=== PATIENT | male | born 1995 | race Caucasian/White ===

== ENCOUNTER 2018-01-28 10:55 | Inpatient (IN) | payer MEDICAID, OTHER ==
[2018-01-28 11:25] VITALS: BMI 20.9
--- NOTE | 2018-01-28 11:54 | ED PDOC ---
Arrival/HPI - General Historian: Patient - History of Present Illness Time/Duration: 4-6 hours Symptom Course: Unchanged Activities at Onset: Rest Context: Sitting <Bryson Aguilar - Last Filed: 01/28/18 14:28> - History of Present Illness Symptom Onset: Sudden Severity Level: Severe Context: Home <Drake Pastrana - Last Filed: 01/28/18 16:21> - General Chief Complaint: Psychiatric Evaluation Time Seen by Provider: 01/28/18 11:35 - History of Present Illness Narrative History of Present Illness (Text): 01/28/18 11:44 patient is a 22M with no PMH comes to the ED for a CC of xanax overdose. Patient was brought in by his friend who found him in his room lethargic. Patient admitted to taking 20mg of xanax. Patient states that his cousin recently . He has a long family history of depression and states he tried to hang himself recently but the rope broke. He is currently suicidal. He has no other complaints at this time. (Bryson Aguilar) Past Medical History - Infectious Disease Hx of Infectious Diseases: None - Tetanus Immunization Tetanus Immunization: Unknown - Past Medical History Past Medical History: No Previous - Cardiac Hx Cardiac Disorders: No - Pulmonary Hx Respiratory Disorders: No - Neurological Hx Neurological Disorder: No - HEENT Hx HEENT Disorder: No - Renal Hx Renal Disorder: No - Endocrine/Metabolic Hx Endocrine Disorders: No - Hematological/Oncological Hx Blood Disorders: No - Integumentary Hx Dermatological Disorder: No - Musculoskeletal/Rheumatological Hx Musculoskeletal Disorders: No - Gastrointestinal Hx Gastrointestinal Disorders: No - Genitourinary/Gynecological Hx Genitourinary Disorders: No - Psychiatric Hx Psychophysiologic Disorder: Yes Hx Anxiety: Yes Hx Depression: Yes Hx Substance Use: Yes (marijuana) - Past Surgical History Past Surgical History: No Previous - Suicidal Assessment Feels Threatened In Home Enviroment: No <Bryson Aguilar - Last Filed: 01/28/18 14:28> - Provider Review Nursing Documentation Reviewed: Yes - Travel History Have you recently traveled outside [place] w/in the past 3 mons?: No - Past History Past History: No Previous <Drake Pastrana - Last Filed: 01/28/18 16:21> Family/Social History - Physician Review Nursing Documentation Reviewed: Yes Family/Social History: Unknown Family HX Smoking Status: Heavy Smoker > 10 Cigarettes Daily Hx Alcohol Use: Yes Hx Substance Use: Yes (marijuana) <Bryson Aguilar - Last Filed: 01/28/18 14:28> Hx Substance Use Treatment: No <Drake Pastrana Last Filed: 01/28/18 16:21> Allergies/Home Meds <Bryson Aguilar Last Filed: 01/28/18 14:28> <Drake Pastrana Last Filed: 01/28/18 16:21> Allergies/Adverse Reactions: Allergies No Known Allergies Allergy (Verified 01/28/18 11:22) Home Medications: Home Meds Medication Instructions Recorded Confirmed Unobtainable 01/28/18 01/28/18 Review of Systems - Review of Systems Constitutional: Normal Eyes: Normal ENT: Normal Respiratory: Normal Cardiovascular: Normal Gastrointestinal: Normal Genitourinary Male: Normal Musculoskeletal: Normal Skin: Normal Neurological: Normal Endocrine: Normal Hemo/Lymphatic: Normal Psychiatric: Depression, Suicidal Ideation <Bryson Aguilar Last Filed: 01/28/18 14:28> - Review of Systems Constitutional: Fatigue <Drake Pastrana Last Filed: 01/28/18 16:21> Physical Exam Vital Signs Reviewed: Yes Temperature: Afebrile Blood Pressure: Normal Pulse: Regular Respiratory Rate: Normal Appearance: Positive for: Ill-Appearing Pain Distress: None Mental Status: Positive for: Alert and Oriented X 3 - Systems Exam Head: Present: Atraumatic, Normocephalic Pupils: Present: Sluggish, Other (dilated, nystagmus) Extroacular Muscles: Present: EOMI Conjunctiva: Present: Normal Mouth: Present: Moist Mucous Membranes Neck: Present: Normal Range of Motion Respiratory/Chest: Present: Clear to Auscultation, Good Air Exchange. No: Respiratory Distress, Accessory Muscle Use Cardiovascular: Present: Regular Rate and Rhythm, Normal S1, S2. No: Murmurs Abdomen: Present: Normal Bowel Sounds. No: Tenderness, Distention, Peritoneal Signs Back: Present: Normal Inspection Upper Extremity: Present: Normal Inspection. No: Cyanosis, Edema Lower Extremity: Present: Normal Inspection. No: Edema Neurological: Present: GCS=15, CN II-XII Intact, Speech Normal Skin: Present: Warm, Dry, Normal Color. No: Rashes Psychiatric: Present: Alert, Oriented x 3, Suicidal Ideation <Bryson Aguilar - Last Filed: 01/28/18 14:28> Vital Signs Temp Pulse Resp BP Pulse Ox 01/28/18 14:58 88 18 115/61 98 01/28/18 13:00 72 18 122/76 98 01/28/18 11:27 98.3 F 79 14 125/81 100 Medical Decision Making <Bryson Aguilar - Last Filed: 01/28/18 14:28> Re-evaluation Time: 13:00 Reassessment Condition: Unchanged - Critical Care Critical Care Minutes: 30 minutes - Lab Interpretations I have reviewed the lab results: Yes Interpretation: All labs normal (except + UTOX) - RAD Interpretation Electrical And Radio Aircraft Mechanic: Radiologist - EKG Interpretation Interpreted by ED Physician: Yes Type: 12 lead EKG Comparison: Similar to previous EKG <Drake Pastrana - Last Filed: 01/28/18 16:21> ED Course and Treatment: 01/28/18 12:13 22M Xanax OD, suicidal attempt - urine drug screen - cbc, cmp - ekg - acetominophen/salicylate lvls - alcohol level 01/28/18 12:26 - spoke with poison control, they will call back when all of the labs have resulted, stated the needed to observe for 24hrs is a clinical decision as long as his vitals are stable 01/28/18 12:43 - Consult PES - alcohol, cleopatra and acetominophen negative - labs unremarkable 01/28/18 12:48 spoke with PES, they will come eval the patient 01/28/18 14:30 Patient is stable and medically cleared for psychiatric treatment and stabilization. (BroderickmarioBryson virgen) 01/28/18 12:20 Patient seen with the resident. I performed a physical exam of the patient and discussed their management with resident. I have reviewed the resident note and agree with the assessment and plan of care. Vital signs reviewed: Within normal limits alert/awake, GCS = 15, oriented x 2 (not to date/time), resting in bed, uncomfortable, cooperative, interactive NC/AT PERRLA, EOMI, sclera anicteric, no nystagmus, no photophobia NECK: intact ROM, no midline tenderness, no nuchal rigidity, no meningeal signs ENT: mild dry oral mucosa, no drooling/stridor, no dysphonia CTA b/l, no w/r/r +S1, +S2, no m/r/r +BS, soft/nd/nt, well nourished patient ext: intact ROM, strength 5/5 grossly intact in all limbs, neurovasc intact b/l SKIN: cap refill < 1 sec, no ulcerations, no petechiae, no rashes NEURO: CNII-XII WNL, no facial asymmetries, + mild slurr speech (likely due to benzo od), + flat affect/depressed affect Impression: Xanax Overdose; suicidal attempt; severe depression I have considered all the differential diagnosis regarding the patient's chief medical complaints/clinical findings, including but are not limited to: Xanax Overdose; severe depression; suicidal attempt A/P: Xanax Overdose -- EKG -- Urinalysis -- Supportive Care -- Observe 1250 PES/crisis counselor paged by resident, contacted, will evaluate patient at bedside 1330 PES evaluated patient, recommend patient for admission/psych 01/28/18 14:50 pt is currently comfortable pt does not exhibit any distress vital signs are stable PT IS MEDICALLY cleared for psych eval/mgt/stabiization (Drake Pastrana) - Critical Care Narrative Critical Care (Text): 01/28/18 14:42 critical care time: 30min, excluding procedure time, excluding time teaching residents/students/mid-level providers; including initial eval/diagnosis, diagnostic interpretation, re-eval, consultations, final disposition (Drake Pastrana) - Lab Interpretations Lab Results: 01/28/18 11:30 01/28/18 11:30 Lab Results 01/28/18 13:05: Urine Color Yellow, Urine Appearance Clear, Urine pH 6.5, Ur Specific [place] 1.025, Urine Protein Negative, Urine Glucose (UA) Negative, Urine Ketones Negative, Urine Blood Negative, Urine Nitrate Negative, Urine Bilirubin Negative, Urine Urobilinogen 0.2, Ur Leukocyte Esterase Negative 01/28/18 13:05: Urine Opiates Screen Negative, Urine Methadone Screen Negative, Ur Barbiturates Screen Negative, Ur Phencyclidine Scrn Negative, Ur Amphetamines Screen Negative, U Benzodiazepines Scrn Positive, U Oth Cocaine Metabols Negative, U Cannabinoids Screen Positive H 01/28/18 11:30: Alcohol, Quantitative < 10 01/28/18 11:30: Salicylates < 1 L, Acetaminophen < 10.0 L 01/28/18 11:30: Sodium 145, Potassium 3.7, Chloride 107, Carbon Dioxide 28, Anion Gap 14, BUN 12, Creatinine 1.3, Est GFR ( Amer) > 60, Est GFR (Non- Af Amer) > 60, Random Glucose 84, Calcium 10.0, Magnesium 2.0, Total Bilirubin 0.9, AST 29, ALT 38, Alkaline Phosphatase 52, Total Protein 7.6, Albumin 4.3, Globulin 3.3, Albumin/Globulin Ratio 1.3 01/28/18 11:30: WBC 6.3, RBC 4.93, Hgb 15.2, Hct 43.5, MCV 88.2, MCH 30.8, MCHC 34.9, RDW 13.1, Plt Count 169, MPV 10.1, Gran % 38.9 L, Lymph % (Auto) 44.9 H, [place] % (Auto) 10.6 H, Eos % (Auto) 5.4 H, Baso % (Auto) 0.2, Gran # 2.45, Lymph # (Auto) 2.8, [place] # (Auto) 0.7 H, Eos # (Auto) 0.3, Baso # (Auto) 0.01 - RAD Interpretation Narrative RAD Interpretations (Text): 01/28/18 16:20 HISTORY: suicidal/medical clearance COMPARISON: No prior. FINDINGS: LUNGS: No active pulmonary disease. PLEURA: No significant pleural effusion identified, no pneumothorax apparent. CARDIOVASCULAR: Normal. OSSEOUS STRUCTURES: No significant abnormalities. VISUALIZED UPPER ABDOMEN: Normal. OTHER FINDINGS: None. IMPRESSION: No active disease. (Drake Pastrana) - EKG Interpretation EKG Interpretation (Text): 01/28/18 14:44 NSR at 80 bpm, normal axis, no ectopy, early replarization ST changes noted, ABNL EKG; unchanged compare with old ekg 10/2014 (Drake Pastrana) - PA / TACTICAL/MOBILE WATCH OFFICER / Resident Statement / has reviewed & agrees with the documentation as recorded. / has examined the patient and agrees with the treatment plan. <Bryson Aguilar - Last Filed: 01/28/18 14:28> - Scribe Statement The provider has reviewed the documentation as recorded by the Scribe <Drake Pastrana - Last Filed: 01/28/18 16:21> - Scribe Statement Aletha Dill Provider Scribe Attestation: All medical record entries made by the Scribe were at my direction and personally dictated by me. I have reviewed the chart and agree that the record accurately reflects my personal performance of the history, physical exam, medical decision making, and the department course for this patient. I have also personally directed, reviewed, and agree with the discharge instructions and disposition. (Drake Pastrana) Disposition/Present on Arrival - Present on Arrival Any Indicators Present on Arrival: No History of DVT/PE: No History of Uncontrolled Diabetes: No Urinary Catheter: No History of Decub. Ulcer: No History Surgical Site Infection Following: None - Disposition Have Diagnosis and Disposition been Completed?: Yes Disposition Time: 14:33 Patient Plan: Admission <Bryson Aguilar - Last Filed: 01/28/18 14:28> <Drake Pastrana - Last Filed: 01/28/18 16:21> - Disposition Diagnosis: Suicide attempt by drug ingestion, Severe depression, Medical clearance for psychiatric admission Disposition: HOSPITALIZED Patient Problems: Current Active Problems Problem Status Onset Suicide attempt by drug ingestion Acute Severe depression Acute Medical clearance for psychiatric admission Acute Condition: GUARDED
[2018-01-28 12:37] LABS: BASO # 0.01 K/mm3 (0.0-2.0); BASO % 0.2 % (0.0-3.0); EOS # 0.3 (0.0-0.7); EOS % 5.4 % (1.5-5.0); GRAN # 2.45 (1.4-6.5); GRAN % 38.9 % (50.0-68.0); HEMOGLOBIN 15.2 g/dL (14.0-18.0); LYMPH # 2.8 (1.2-3.4); LYMPH % 44.9 % (22.0-35.0); MEAN CELL VOLUME 88.2 fl (80.0-105.0); MEAN CORPUSCULAR HEMOGLOBIN 30.8 pg (25.0-35.0); MEAN CORPUSCULAR HGB CONC 34.9 g/dl (31.0-37.0); MEAN PLATELET VOLUME 10.1 fl (7.0-11.0); MONO # 0.7 (0.1-0.6); MONO % 10.6 % (1.0-6.0); RBC 4.93 10^6/uL (3.5-6.1); RED CELL DISTRIBUTION WIDTH 13.1 % (11.5-14.5); WHITE BLOOD COUNT 6.3 10^3/ul (4.5-11.0)
[2018-01-28 12:38] LABS: BLOOD UREA NITROGEN 12 mg/dL (7-21); GFR AFRICAN-AMERICAN > 60; GFR NON-AFRICAN AMERICAN > 60
[2018-01-28 12:39] LABS: ACETAMINOPHEN < 10.0 ug/ml (10.0-20.0); ALB/GLOB RATIO 1.3 (1.1-1.8); ALBUMIN 4.3 g/dL (3.0-4.8); ALT/SGPT 38 U/L (7-56); AST/SGOT 29 U/L (17-59); SALICYLATE < 1 mg/dL (2.0-20.0)
[2018-01-28 13:23] LABS: PH,URINE 6.5 (4.7-8.0); URINE BILIRUBIN NEGATIVE (NEGATIVE); URINE BLOOD NEGATIVE (NEGATIVE); URINE GLUCOSE (UA) NEGATIVE (NEGATIVE); URINE LEUKOCYTE ESTERASE NEGATIVE Leu/uL (NEGATIVE); URINE PROTEIN NEGATIVE mg/dL (<30 mg/dL); URINE UROBILINOGEN 0.2 E.U./dL (<1 E.U./dL)
[2018-01-28 13:25] LABS: URINE APPEARANCE CLEAR (CLEAR); URINE COLOR YELLOW (YELLOW)
[2018-01-28 14:02] LABS: BARBITURATES, UR NEGATIVE (NEGATIVE); BENZODIAZEPINES, UR POSITIVE (NEGATIVE); OPIATES, UR NEGATIVE (NEGATIVE); PHENCYCLIDINE, UR NEGATIVE (NEGATIVE)
[2018-01-28 14:59] VITALS: O2SAT 98
--- NOTE | 2018-01-28 15:15 | RAD ---
HISTORY: suicidal/medical clearance COMPARISON: No prior. FINDINGS: LUNGS: No active pulmonary disease. PLEURA: No significant pleural effusion identified, no pneumothorax apparent. CARDIOVASCULAR: Normal. OSSEOUS STRUCTURES: No significant abnormalities. VISUALIZED UPPER ABDOMEN: Normal. OTHER FINDINGS: None. IMPRESSION: No active disease.
[2018-01-28] MEDS ORDERED: Alum-Mag Hydrox-Simethicone Susp (30 mL) PO PRN (17:09)
[2018-01-28] MEDS ORDERED: Magnesium Hydroxide Susp 30 ml UD PO PRN (17:09)
--- NOTE | 2018-01-28 17:38 | PCM.BM ---
<MgGavin - Last Filed: 01/28/18 17:35> Treatment Plan Problems - Problems identified on initial assessmt Self Harm Date Initiated: 01/28/18 Time Initiated: 15:30 Assessment reference: NA Status: Active Priority: 1 Suicidal Ideation Date Initiated: 01/28/18 Time Initiated: 15:30 Assessment reference: NA Status: Active Priority: 2 Anxiety Date Initiated: 01/28/18 Time Initiated: 15:30 Assessment reference: NA Status: Active Priority: 3 Ineffective Coping Date Initiated: 01/28/18 Time Initiated: 15:30 Assessment reference: NA Status: Active Priority: 4 Hopelessness/Helplessness Date Initiated: 01/28/18 Time Initiated: 15:30 Assessment reference: NA Status: Active Priority: 5 Feelings of Worthlessness Date Initiated: 01/28/18 Time Initiated: 15:30 Assessment reference: NA Status: Active Priority: 6 Treatment assets and liabiliti Patient Assests: self-reliant, ADL independent, cognitively intact Patient Liabilities: relationship conflicts, substance abuse - Milieu Protocol Maintain good personal hygiene: daily Encourage regular showers, every shift Remind patient to perform daily oral care, every shift Assist patient to perform ADL's Maintain personal safety: every shift Educate patient to report safety concerns to staff, every shift Monitor environment for contraband/sharps Medication safety: Monitor for expected outcome, potential side effects: every shift, Assess barriers to learning: every shift, Assess readiness for medication education: every shift Discharge/Continuing Care - Education Needs Education Needs: Patient Medication, Patient Diagnosis/Disease Process, Patient Coping Skills, Patient Anger Management skills, Patient Placement options, Patient Community resources, Patient Activities of Daily Living, Patient Pain, Patient Nutrition, Patient Uses of Medical Equipment, Patient Health Practices/ Safety, Patient Personal Hygiene/Grooming, Patient Aftercare Safety Plan, Patient Other - Discharge Discharge Criteria: Tolerates medication w/o severe side effects, Free of Suicidal thoughts <Serena Wilkins - Last Filed: 01/29/18 15:11> - Diagnosis (1) MDD (major depressive disorder) Status: Acute Interventions: 01/29/18 15:11 Psychoeducation Psychopharmacology/adjustment of medications as needed/ monitoring possible side effects Evaluate pt on daily basis Compliance with medications and follow up appointments Suicide and homicide risk assessment and prevention Relapse prevention Reduction of symptoms Improve functional status Family involvement As outpatient: cognitive behavioral therapy (2) RITESH (generalized anxiety disorder) Status: Acute Interventions: 01/29/18 15:12 Psychoeducation Psychopharmacology/adjustment of medications as needed/ monitoring possible side effects Evaluate pt on daily basis Discussion of importance of being compliant with medications and follow up appointments Suicide and homicide risk assessment and prevention, coping strategies, safety plan Reduction of symptoms Relaxation techniques and breathing exercises Improve functional status Family involvement Cognitive behavioral therapy as outpatient <Kamini Boyd Y - Last Filed: 01/31/18 09:07> Family Contact Family involvement: Patient does not wish Family/SO involvement
--- NOTE | 2018-01-28 19:24 | CARD ---
APPROVED REPORT EKG Measurement Heart [id number] <Conclusion> Normal sinus rhythm Early repolarization Normal ECG
[2018-01-29 08:10] LABS: GLUCOSE,FASTING 74 mg/dL (65-110); HDL CHOLESTEROL 31 mg/dL (29-60)
[2018-01-29 08:20] LABS: LDL CHOLESTEROL 136 mg/dL (0-129)
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
--- NOTE | 2018-01-30 11:26 | PCM.PYCHPN ---
Psychiatric Progress Note - Psychiatric Progress Note Patient seen today, length of contact: 30min Patient Chief Complaint: "is this what you were doing in the [employer], I saw you there..." Problems Identified/Issues Discussed: Suicide/ homicide prevention, past psychiatric h/o, current psychiatric symptoms , medical problems, risk/benefits and alternatives of medications, medications compliance, coping strategies, substance abuse h/o, relapse prevention, importance of follow up with psychiatrist and therapist, discharge plan. Medical Problems: hypotension dyslipidemia stomach ulcers today pt said his PMD is , will call for consult Diagnostic Results: 01/28/18 11:30 01/28/18 11:30 Lab Results 01/29/18 07:54: TSH 3rd Generation 0.49 01/29/18 07:54: Fasting Glucose 74, Triglycerides 94, Cholesterol 190, LDL Cholesterol Direct 136 H, HDL Cholesterol 31 01/29/18 07:40: RPR Nonreactive 01/28/18 13:05: Urine Color Yellow, Urine Appearance Clear, Urine pH 6.5, Ur Specific [place] 1.025, Urine Protein Negative, Urine Glucose (UA) Negative, Urine Ketones Negative, Urine Blood Negative, Urine Nitrate Negative, Urine Bilirubin Negative, Urine Urobilinogen 0.2, Ur Leukocyte Esterase Negative 01/28/18 13:05: Urine Opiates Screen Negative, Urine Methadone Screen Negative, Ur Barbiturates Screen Negative, Ur Phencyclidine Scrn Negative, Ur Amphetamines Screen Negative, U Benzodiazepines Scrn Positive, U Oth Cocaine Metabols Negative, U Cannabinoids Screen Positive H 01/28/18 11:30: Alcohol, Quantitative < 10 01/28/18 11:30: Salicylates < 1 L, Acetaminophen < 10.0 L 01/28/18 11:30: Sodium 145, Potassium 3.7, Chloride 107, Carbon Dioxide 28, Anion Gap 14, BUN 12, Creatinine 1.3, Est GFR ( Amer) > 60, Est GFR (Non- Af Amer) > 60, Random Glucose 84, Calcium 10.0, Magnesium 2.0, Total Bilirubin 0.9, AST 29, ALT 38, Alkaline Phosphatase 52, Total Protein 7.6, Albumin 4.3, Globulin 3.3, Albumin/Globulin Ratio 1.3 01/28/18 11:30: WBC 6.3, RBC 4.93, Hgb 15.2, Hct 43.5, MCV 88.2, MCH 30.8, MCHC 34.9, RDW 13.1, Plt Count 169, MPV 10.1, Gran % 38.9 L, Lymph % (Auto) 44.9 H, [place] % (Auto) 10.6 H, Eos % (Auto) 5.4 H, Baso % (Auto) 0.2, Gran # 2.45, Lymph # (Auto) 2.8, [place] # (Auto) 0.7 H, Eos # (Auto) 0.3, Baso # (Auto) 0.01 Vital Signs Temp Pulse Resp BP Pulse Ox 01/30/18 07:30 97.3 F L 64 20 105/72 01/29/18 15:00 76 123/84 01/29/18 07:19 98.0 F 80 20 92/51 L 01/28/18 14:58 88 18 115/61 98 01/28/18 13:00 72 18 122/76 98 01/28/18 11:27 98.3 F 79 14 125/81 100 DSM 5 Symptoms Update: shortly patient is 22-year-old Male, self reported history of generalized anxiety disorder, history of depression, self reported history of more than 10 suicidal attempts, patient denied previous psychiatric admissions, strong family history of depression and anxiety, last year patient cousin committed suicide, patient was brought in by his roommates after being found unresponsive status post overdose on Xanax and alcohol, patient requires further evaluation and stabilization, medications titration. Patient was seen and examined at the treatment team meeting today, pt appeared to be confused and asked "is this what you were doing in the [employer] , I saw you there..." referring to the treatment team meeting, when was asked why he is asking pt said that his brother had some speech delay and he was involved in groups like that. but this filing writer never worked in [employer], never seen pt before. pt was more spontaneous in his speech, but confused. there are some positive changes with pt, pt said that he feels more comfortable in the unit, reported that he slept well. as per staff pt did not have any behavioral issues, appears anxious around females. pt contracted for safety and 1:1 was d/c. pt said he tolerates meds well, no side effects observed or reported, AIMS 0, no EPS. DSM 5 Diagnosis: MDD with psychosis r/o RITESH cannabis abuse Rule out bipolar disorder Medication Change: Yes (risperdal added) Medical Record Reviewed: Yes Consults ordered or reviewed: medical consult by Mental Status Examination - Cognitive Function Orientation: Person, Place Memory: Impaired Attention: Poor Concentration: Poor Association: Loose Fund of Knowledge: Poor - Mood Mood: Depressed, Anxious - Affect Affect: Other (labile) - Speech Speech: Slurred - Formal Thought Process Formal Thought Process: Paranoia (pt was guarded) - Suicidal Ideation Suicidal Ideation: No - Homicidal Ideation Homicidal Ideation: No Goal/Treatment Plan - Goal/Treatment Plan Need for Continued Stay: Remain at risks for inpatient hospitalization, Severe depression anxiety, Discharge may exacerbated symptoms, Severe functional impairment Progress Toward Problem(s) and Goals/Treatment Plan: Milieu/structure/supportive therapy Medical consult will be called for dyslipidemia as well as orthostatic hypotension. SW consultation for discharge plan and social issues Med management Prozac 10 mg by mouth daily for depression and anxiety and Klonopin 0.5 mg twice a day for anxiety and possible catatonic features Will give Risperdal 0.5 mg bid for psychosis and mood stabilization Remeron at the nighttime for insomnia and for depression 50 mg Patient was initiated 1:1 observation yesterday, patient was able to contract for safety, we'll discontinue that today Family involvement Follow up on labs Will monitor closely Pt was educated about risk/benefits and alternatives of medications, coping strategies (safety plan, suicide prevention), relapse prevention, importance of follow up with psychiatrist and therapist, stay away from drugs/alcohol/smoking Estimated Date of D/C: 02/06/18 - Smoking Cessation Smoking Cessation Initiated: Yes Reason for not providing: pt asked for nicotine patch yesterday, 21mg td was provided.
--- NOTE | 2018-01-30 15:42 | CP.PCM.CON ---
<Dulce Lechugapacheco - Last Filed: 01/30/18 15:25> History of Present Illness - History of Present Illness History of Present Illness: Shaq Lechuga DO PGY1 - Internal Medicine Consult Note for Dr. Osorio Consultation for orthostasis and hyperlipidemia HPI: 22 yo M with PMH of GERD with H pylori, chronic constipation, and depression, who initially presented to the ER, brought by his friends, after suicidal attempt by hanging. Patient also reports that he overdosed on Xanax, having taken approximately 20mg. Patient is awake, alert, oriented to person, place, and time, found cooperating with [employer]. Patient complaining of depression. Patient also reports abdominal discomfort and bloating with meals , as well as constipation - last BM about 6 days ago. Patient recently completed course of triple therapy for H pylori, and takes Miralax at home for constipation, which becomes diarrhea when he finally has a bowel movement, every 7-10 days. Patient denies any chest pain, shortness of breath, abdominal pain, fever, chills, nausea, vomiting, headache, dizziness, auditory/visual hallucinations. Remainder of 12 point ROS was obtained and was negative except as above. PMH: GERD with H pylori, chronic constipation, and depression PSH: Denies FHx: DM, HLD, IBS in father, Hep C, Gastric CA in mother Soc: Current 1PPD smoker, 8 PYH; Denies alcohol use; Illicits, admits to occasional intranasal cocaine use, approximately once yearly, last used several months ago, previously abused tramadol and xanax, smokes marijuana daily All: NKDA Past Patient History - Infectious Disease Hx of Infectious Diseases: None - Tetanus Immunizations Tetanus Immunization: Unknown - Past Social History Smoking Status: Heavy Smoker > 10 Cigarettes Daily - CARDIAC Hx Cardiac Disorders: No - PULMONARY Hx Respiratory Disorders: No - NEUROLOGICAL Hx Neurological Disorder: No - HEENT Hx HEENT Problems: No - RENAL Hx Chronic Kidney Disease: No - ENDOCRINE/METABOLIC Hx Endocrine Disorders: No - HEMATOLOGICAL/ONCOLOGICAL Hx Blood Disorders: No - INTEGUMENTARY Hx Dermatological Problems: No - MUSCULOSKELETAL/RHEUMATOLOGICAL Hx Musculoskeletal Disorders: No - GASTROINTESTINAL Hx Gastrointestinal Disorders: No - GENITOURINARY/GYNECOLOGICAL Hx Genitourinary Disorders: No - PSYCHIATRIC Hx Substance Use: Yes - SURGICAL HISTORY Hx Surgeries: No - ANESTHESIA Hx Anesthesia: No Meds Allergies/Adverse Reactions: Allergies Allergy/AdvReac Type Severity Reaction Status Date / Time No Known Allergies Allergy Verified 01/30/18 00:20 - Medications Medications: Current Medications Acetaminophen (Tylenol 325mg Tab) 650 mg PO Q6H PRN PRN Reason: Pain, moderate (4-7) Al Hydrox/Mg Hydrox/Simethicone (Maalox Plus 30 Ml) 30 ml PO DAILY PRN PRN Reason: Indigestion / Heartburn Clonazepam (Klonopin) 0.5 mg PO BID LEANA PRN Reason: Protocol Last Admin: 01/30/18 08:57 Dose: 0.5 mg Fluoxetine HCl (Prozac) 10 mg PO DAILY FOR[facility]LY [facility], [facility] Last Admin: 01/30/18 08:56 Dose: 10 mg Lorazepam (Ativan) 1 mg PO TID PRN; Protocol PRN Reason: Anxiety Last Admin: 01/29/18 23:53 Dose: 1 mg Lorazepam (Ativan) 1 mg IM Q6H PRN; Protocol PRN Reason: Anxiety Last Admin: 01/28/18 23:44 Dose: 1 mg Magnesium Hydroxide (Milk Of Magnesia) 30 ml PO DAILY PRN PRN Reason: Constipation Mirtazapine (Remeron) 15 mg PO HS [facility], [facility] Last Admin: 01/29/18 21:45 Dose: 15 mg Nicotine (Nicoderm Cq) 1 patch TD DAILY [facility], [facility] Last Admin: 01/30/18 08:56 Dose: 1 patch Pantoprazole Sodium (Protonix Ec Tab) 40 mg PO 0600 LEANA Risperidone (Risperdal Tab) 0.5 mg PO AMHS [facility]LY [facility], [facility] PRN Reason: Protocol Last Admin: 01/30/18 13:33 Dose: 0.5 mg Ziprasidone (Geodon Inj) 20 mg IM Q6H PRN; Protocol PRN Reason: Agitation Physical Exam - Constitutional Appears: Non-toxic, No Acute Distress - Head Exam Head Exam: ATRAUMATIC, NORMOCEPHALIC - Eye Exam Eye Exam: EOMI, Normal appearance, PERRL - ENT Exam ENT Exam: Mucous Membranes Moist - Neck Exam Neck exam: Positive for: Normal Inspection - Respiratory Exam Respiratory Exam: Clear to Auscultation Bilateral, NORMAL BREATHING PATTERN - Cardiovascular Exam Cardiovascular Exam: RRR, +S1, +S2 - GI/Abdominal Exam GI & Abdominal Exam: Normal Bowel Sounds, Soft - Extremities Exam Extremities exam: Positive for: normal inspection. Negative for: calf tenderness, pedal edema - Neurological Exam Neurological exam: Alert, CN II-XII Intact, Oriented x3 - Psychiatric Exam Psychiatric exam: Flat Affect, Normal Mood - Skin Skin Exam: Dry, Intact, Normal Color Results - Vital Signs Recent Vital Signs: Last Vital Signs Temp 97.3 F L 01/30/18 07:30 Pulse 64 01/30/18 07:30 Resp 20 01/30/18 07:30 BP 105/72 01/30/18 07:30 Pulse Ox 98 01/28/18 14:58 - Labs Result Diagrams: 01/28/18 11:30 01/28/18 11:30 Labs: Laboratory Results - last 24 hr 01/29/18 07:40 RPR Nonreactive Assessment & Plan - Assessment and Plan (Free Text) Assessment: 22 yo M with PMH of GERD with H pylori, chronic constipation, and depression, who initially presented to the ER, brought by his friends, after suicidal attempt by hanging; also admits to xanax overdose. Consultation for orthostasis and hyperlipidemia Orthostasis - Patient reports mild lightheadedness upon rising; improved since admission - Orthostatic vital signs remarkable for HR increase by 27 from supine to standing, no decrease in BP - Encourage PO hydration; rise slowly from supine or seated position Hyperlipidemia - Patient has mildly elevated LDL, though very low risk for cardiac events - Recommend heart healthy diet; dietary and lifestyle modifications discussed h/o GERD - Start Protonix 40mg PO daily - Continue Maalox PRN - Patient will require outpatient follow up for endoscopy to confirm eradication of H pylori and rule out PUD h/o Constipation - Continue home Miralax Tobacco use - Patient is current active smoker - Discussed cessation; patient verbalized understanding Depression and suicidal attempt - Management per psych team Patient discussed and reviewed with attending, Dr. Osorio Thank you for this consultation, will sign off. Please reconsult as needed. <Nicholas Osorio - Last Filed: 01/31/18 15:22> Meds - Medications Medications: Current Medications Acetaminophen (Tylenol 325mg Tab) 650 mg PO Q6H PRN PRN Reason: Pain, moderate (4-7) Al Hydrox/Mg Hydrox/Simethicone (Maalox Plus 30 Ml) 30 ml PO DAILY PRN PRN Reason: Indigestion / Heartburn Clonazepam (Klonopin) 0.5 mg PO BID LEANA PRN Reason: Protocol Last Admin: 01/31/18 09:07 Dose: 0.5 mg Fluoxetine HCl (Prozac) 10 mg PO DAILY [facility] Last Admin: 01/31/18 09:07 Dose: 10 mg Lorazepam (Ativan) 1 mg PO TID PRN; Protocol PRN Reason: Anxiety Last Admin: 01/29/18 23:53 Dose: 1 mg Lorazepam (Ativan) 1 mg IM Q6H PRN; Protocol PRN Reason: Anxiety Last Admin: 01/28/18 23:44 Dose: 1 mg Magnesium Hydroxide (Milk Of Magnesia) 30 ml PO DAILY PRN PRN Reason: Constipation Mirtazapine (Remeron) 15 mg PO HS [facility], [facility] Last Admin: 01/30/18 21:08 Dose: 15 mg Nicotine (Nicoderm Cq) 1 patch TD DAILY [facility] Last Admin: 01/31/18 09:08 Dose: 1 patch Pantoprazole Sodium (Protonix Ec Tab) 40 mg PO 0600 [facility] Last Admin: 01/31/18 05:00 Dose: 40 mg Polyethylene Glycol (Miralax) 17 gm PO DAILY [facility] Last Admin: 01/31/18 09:08 Dose: 17 gm Risperidone (Risperdal Tab) 0.5 mg PO AMHS LEANA PRN Reason: Protocol Last Admin: 01/31/18 09:07 Dose: 0.5 mg Ziprasidone (Geodon Inj) 20 mg IM Q6H PRN; Protocol PRN Reason: Agitation Results - Vital Signs Recent Vital Signs: Last Vital Signs Temp 97.7 F 01/31/18 06:47 Pulse 85 01/31/18 06:47 Resp 20 01/31/18 06:47 BP 125/86 01/30/18 16:43 Pulse Ox 98 01/28/18 14:58 - Labs Result Diagrams: 01/28/18 11:30 01/28/18 11:30 Attending/Attestation - Attestation I have fully participated in the care of the patient.: Yes I have reviewed all pertinent clinical information: Yes Notes (Text): 01/31/18 15:22 Medical record note made by the resident after discussion with my direction and input after the patient was personally seen and examined by me. I have reviewed the chart and agree that the record accurately reflects by personal performance of the history, physical exam, data review, and medical decision-making, in the course for the patient. I have also personally directed the plan of care.
[2018-01-31] MEDS: Pantoprazole 40 mg EC Tab PO SCH (05:00)
[2018-01-31] MEDS: POLYETHYLENE GLYCOL 3350 17 GM/Dose PACKET PO SCH (09:08)
--- NOTE | 2018-01-31 16:37 | PCM.PYCHPN ---
Psychiatric Progress Note - Psychiatric Progress Note Patient seen today, length of contact: 30min Patient Chief Complaint: "I was paranoid, I think it was because of pot, now I feel better" Problems Identified/Issues Discussed: Suicide/ homicide prevention, past psychiatric h/o, current psychiatric symptoms , medical problems, risk/benefits and alternatives of medications, medications compliance, coping strategies, substance abuse h/o, relapse prevention, importance of follow up with psychiatrist and therapist, discharge plan. Medical Problems: hypotension dyslipidemia stomach ulcers patient was seen by hospitalist service Diagnostic Results: 01/28/18 11:30 01/28/18 11:30 Lab Results 01/29/18 07:54: TSH 3rd Generation 0.49 01/29/18 07:54: Fasting Glucose 74, Triglycerides 94, Cholesterol 190, LDL Cholesterol Direct 136 H, HDL Cholesterol 31 01/29/18 07:40: RPR Nonreactive 01/28/18 13:05: Urine Color Yellow, Urine Appearance Clear, Urine pH 6.5, Ur Specific [place] 1.025, Urine Protein Negative, Urine Glucose (UA) Negative, Urine Ketones Negative, Urine Blood Negative, Urine Nitrate Negative, Urine Bilirubin Negative, Urine Urobilinogen 0.2, Ur Leukocyte Esterase Negative 01/28/18 13:05: Urine Opiates Screen Negative, Urine Methadone Screen Negative, Ur Barbiturates Screen Negative, Ur Phencyclidine Scrn Negative, Ur Amphetamines Screen Negative, U Benzodiazepines Scrn Positive, U Oth Cocaine Metabols Negative, U Cannabinoids Screen Positive H 01/28/18 11:30: Alcohol, Quantitative < 10 01/28/18 11:30: Salicylates < 1 L, Acetaminophen < 10.0 L 01/28/18 11:30: Sodium 145, Potassium 3.7, Chloride 107, Carbon Dioxide 28, Anion Gap 14, BUN 12, Creatinine 1.3, Est GFR ( Amer) > 60, Est GFR (Non- Af Amer) > 60, Random Glucose 84, Calcium 10.0, Magnesium 2.0, Total Bilirubin 0.9, AST 29, ALT 38, Alkaline Phosphatase 52, Total Protein 7.6, Albumin 4.3, Globulin 3.3, Albumin/Globulin Ratio 1.3 01/28/18 11:30: WBC 6.3, RBC 4.93, Hgb 15.2, Hct 43.5, MCV 88.2, MCH 30.8, MCHC 34.9, RDW 13.1, Plt Count 169, MPV 10.1, Gran % 38.9 L, Lymph % (Auto) 44.9 H, Teller % (Auto) 10.6 H, Eos % (Auto) 5.4 H, Baso % (Auto) 0.2, Gran # 2.45, Lymph # (Auto) 2.8, Teller # (Auto) 0.7 H, Eos # (Auto) 0.3, Baso # (Auto) 0.01 Vital Signs Temp Pulse Resp BP Pulse Ox 01/30/18 07:30 97.3 F L 64 20 105/72 01/29/18 15:00 76 123/84 01/29/18 07:19 98.0 F 80 20 92/51 L 01/28/18 14:58 88 18 115/61 98 01/28/18 13:00 72 18 122/76 98 01/28/18 11:27 98.3 F 79 14 125/81 100 DSM 5 Symptoms Update: shortly patient is 22-year-old Male, self reported history of generalized anxiety disorder, history of depression, self reported history of more than 10 suicidal attempts, patient denied previous psychiatric admissions, strong family history of depression and anxiety, last year patient cousin committed suicide, patient was brought in by his roommates after being found unresponsive status post overdose on Xanax and alcohol, patient requires further evaluation and stabilization, medications titration. (of note pt has at least three back to back suicidal attempts, 01/26/18 by overdose on xanax, 01/27/18 trying to hang himself, 01/28/18 s/p overdose on xanax and liquor, pt was found unresponsive in apartment by his roommates. Patient was seen and examined next at the nursing station, patient presented much,, less anxious, thought process is more organized, patient is less paranoid , thought process seems to be more organized and goal directed. Patient has "understanding that he was psychotic and paranoid and patient makes statement " I was paranoid because of marijuana, but now I feel better". Patient reported that he feels much better, less anxious, patient reported that he is sleep was not good this night but slept well the night before. Patient's family contacted this brief writer left her a voicemail pt's sister Diana seems to be very concerned about patient's safety, reported on the voicemail that patient has tried to kill himself for past 6 years, patient has history of cutting self with the knives and family was concerned about his safety. Patient did not give permission to talk to the family, patient said that he wants to talk to his sister first and then he will think to give this brief writer permission. as per staff pt did not have any behavioral issues, appears anxious around females. pt contracted for safety and 1:1 was d/c. pt said he tolerates meds well, no side effects observed or reported, AIMS 0, no EPS. DSM 5 Diagnosis: MDD with psychosis r/o RITESH cannabis abuse Rule out bipolar disorder Medication Change: Yes (Prozac increased, Remeron increased) Medical Record Reviewed: Yes Mental Status Examination - Cognitive Function Orientation: Person, Place Memory: Impaired Attention: Poor (some improvement) Concentration: Poor (some improvement) Association: Loose Fund of Knowledge: Poor - Mood Mood: Depressed, Anxious - Affect Affect: Other (labile) - Speech Speech: Appropriate - Formal Thought Process Formal Thought Process: Paranoia (some improvement) - Suicidal Ideation Suicidal Ideation: No - Homicidal Ideation Homicidal Ideation: No Goal/Treatment Plan - Goal/Treatment Plan Need for Continued Stay: Remain at risks for inpatient hospitalization, Severe depression anxiety, Discharge may exacerbated symptoms, Severe functional impairment Progress Toward Problem(s) and Goals/Treatment Plan: Milieu/structure/supportive therapy Medical consult will be called for dyslipidemia as well as orthostatic hypotension. consultation for discharge plan and social issues Med management Prozac 20 mg by mouth daily for depression and anxiety and Klonopin 0.5 mg twice a day for anxiety and possible catatonic features Risperdal 0.5 mg bid for psychosis and mood stabilization Remeron at the nighttime for insomnia and for depression 30 mg Family involvement Follow up on labs Will monitor closely Pt was educated about risk/benefits and alternatives of medications, coping strategies (safety plan, suicide prevention), relapse prevention, importance of follow up with psychiatrist and therapist, stay away from drugs/alcohol/smoking Estimated Date of D/C: 02/06/18
[2018-02-01] MEDS: POLYETHYLENE GLYCOL 3350 17 GM/Dose PACKET PO SCH ×2 (08:51→15:50)
[2018-02-01] MEDS: Pantoprazole 40 mg EC Tab PO SCH (08:52)
[2018-02-01] MEDS ORDERED: Magnesium Citrate Oral SOL (300 ml) PO ONE ×2 (12:53→15:45)
--- NOTE | 2018-02-01 12:56 | PCM.PYCHPN ---
Psychiatric Progress Note - Psychiatric Progress Note Patient seen today, length of contact: 25 min Problems Identified/Issues Discussed: I reviewed assessment and recent notes. Patient is a 22-year-old Male with history of depression and generalized anxiety disorder, self reported history of more than 10 suicidal attempts, strong family history of depression and anxiety (last year patients cousin committed suicide) who was brought in by his roommates after being found unresponsive status post overdose on Xanax and alcohol. Per Dr. Leonard assessment, patient has had at least three [id number] suicidal attempts, 01/26/18 by overdose on xanax, 01/27/18 trying to hang himself, 01/28/18 s/p overdose on xanax and liquor, pt was found unresponsive in apartment by his roommates. Patient was interviewed at bedside this morning. Grooming is fair and he is oriented to month, year, location and circumstances. Patients eye contact is poor. He appears guarded, constricted and withdrawn though he reports that he is doing well, I am making good progress. Patient feels more hopeful than hopeless. Patient appears preoccupied but doesnt present as overtly disorganized or psychotic. He is not responding to internal stimuli and denies perceptual disturbance. Anxiety is improving. Thought process is fairly coherent and staff have noted that he appears more organized and less paranoid. Patient indicates that he is sleeping better and denies any new concerns. Staff notes indicate that patient has been improving, his affect is brighter and more reactive. He communicates more readily with staff and is visible on the unit watching television. Patient is also attending groups. Diagnostic Results: MDD with psychosis r/o RITESH cannabis abuse Rule out bipolar disorder Medication Change: Yes ( Miralax 17 grams po bid and Mag Citrate 200 ml x1. ) Medical Record Reviewed: Yes Mental Status Examination - Cognitive Function Orientation: Person, Place Memory: Impaired Attention: Poor (some improvement) Concentration: Poor (some improvement) Association: Loose Fund of Knowledge: Poor - Mood Mood: Depressed, Anxious - Affect Affect: Other (labile) - Speech Speech: Appropriate - Formal Thought Process Formal Thought Process: Paranoia (some improvement) - Suicidal Ideation Suicidal Ideation: No - Homicidal Ideation Homicidal Ideation: No Goal/Treatment Plan - Goal/Treatment Plan Need for Continued Stay: Remain at risks for inpatient hospitalization, Severe depression anxiety, Discharge may exacerbated symptoms, Severe functional impairment Progress Toward Problem(s) and Goals/Treatment Plan: * c/w current tx and plan * No new labs thus far * Vitals reviewed and noted below: 01/31/18 02/01/18 15:00 06:21 Temperature 98.5 F Pulse Rate 112 H 60 Respiratory 18 Rate Blood Pressure 128/88 139/71 * Of note: Patient appears to respond and engage more openly with males. Medical student, Sunil has been meeting with patient daily and establishing rapport and trust. I was informed today that patient continues to have constipation despite initiation of Colace. Dr. Ramos was curb-sided and recommended Miralax 17 grams po bid and Mag Citrate 200 ml x1. Estimated Date of D/C: 02/06/18
[2018-02-02] MEDS: POLYETHYLENE GLYCOL 3350 17 GM/Dose PACKET PO SCH ×3 (09:08→17:15)
--- NOTE | 2018-02-02 13:04 | PCM.PYCHPN ---
Psychiatric Progress Note - Psychiatric Progress Note Patient seen today, length of contact: 25 min Problems Identified/Issues Discussed: Patient is a 22-year-old Male with history of depression and generalized anxiety disorder, self reported history of more than 10 suicidal attempts, strong family history of depression and anxiety (last year patients cousin committed suicide) who was brought in by his roommates after being found unresponsive status post overdose on Xanax and alcohol. Per Dr. Leonard assessment, patient has had at least three [id number] suicidal attempts, 01/26/18 by overdose on xanax, 01/27/18 trying to hang himself, 01/28/18 s/p overdose on xanax and liquor, pt was found unresponsive in apartment by his roommates. I reviewed recent notes and patient was interviewed at bedside this morning. Grooming is fair and he is oriented to month, year, location and circumstances. Patients eye contact is a little better and he appears a little less guarded. He definitely seems brighter and a little more spontaneous today though affect still remains constricted and flat. Patient feels more hopeful than hopeless and denies thoughts of harming himself or others. Patient appears preoccupied but doesn't present as overtly disorganized or psychotic, this presentation may be due to anxiety. He is not responding to internal stimuli and denies perceptual disturbance. Energy level are improving. Thought process is fairly coherent and staff have noted that he appears more organized and less paranoid. Patient is sleeping better and denies any new concerns. Staff notes indicate that patient has been improving, his affect is brighter and more reactive. He communicates more readily with staff and is visible on the unit watching television. Patient is also attending groups. Of note: Patient appears to respond and engage more openly with males. Medical student has been meeting with patient daily and establishing rapport and trust. I was informed that patient continues to have constipation despite initiation of Colace. Dr. Ramos was curb-sided and recommended Miralax 17 grams po bid and Mag Citrate until patient has a BM. Diagnostic Results: MDD with psychosis r/o RITESH cannabis abuse Rule out bipolar disorder Medication Change: Yes ( Miralax 17 grams po bid and Mag Citrate 200 ml x1. ) Medical Record Reviewed: Yes Mental Status Examination - Cognitive Function Orientation: Person, Place Memory: Impaired Attention: Poor (some improvement) Concentration: Poor (some improvement) Association: Loose Fund of Knowledge: Poor - Mood Mood: Depressed, Anxious - Affect Affect: Other (labile) - Speech Speech: Appropriate - Formal Thought Process Formal Thought Process: Paranoia (some improvement) - Suicidal Ideation Suicidal Ideation: No - Homicidal Ideation Homicidal Ideation: No Goal/Treatment Plan - Goal/Treatment Plan Need for Continued Stay: Remain at risks for inpatient hospitalization, Severe depression anxiety, Discharge may exacerbated symptoms, Severe functional impairment Progress Toward Problem(s) and Goals/Treatment Plan: * c/w current tx and plan * No new labs thus far * Vitals reviewed and noted below: 01/31/18 02/01/18 15:00 06:21 Temperature 98.5 F Pulse Rate 112 H 60 Respiratory 18 Rate Blood Pressure 128/88 139/71 * Of note: Patient appears to respond and engage more openly with males. Medical student, Sunil has been meeting with patient daily and establishing rapport and trust. I was informed yesterday that patient continues to have constipation despite initiation of Colace. Dr. Ramos was curb-sided and recommended Miralax 17 grams po bid and Mag Citrate 200 ml x1. Staff notes indicate patient had a BM yesterday afternoon. Estimated Date of D/C: 02/06/18
[2018-02-03] MEDS: Pantoprazole 40 mg EC Tab PO SCH ×2 (06:38→08:19)
[2018-02-03] MEDS: POLYETHYLENE GLYCOL 3350 17 GM/Dose PACKET PO SCH ×3 (08:26→15:32)
--- NOTE | 2018-02-03 09:48 | PCM.PYCHPN ---
Psychiatric Progress Note - Psychiatric Progress Note Patient seen today, length of contact: 25 min Patient Chief Complaint: "better" Problems Identified/Issues Discussed: Patient is a 22-year-old Male with history of depression and generalized anxiety disorder, self reported history of more than 10 suicidal attempts, strong family history of depression and anxiety (last year patients cousin committed suicide) who was brought in by his roommates after being found unresponsive status post overdose on Xanax and alcohol. Per Dr. Leonard assessment, patient has had at least three [id number] suicidal attempts, 01/26/18 by overdose on xanax, 01/27/18 trying to hang himself, 01/28/18 s/p overdose on xanax and liquor, pt was found unresponsive in apartment by his roommates. I reviewed recent notes and patient was interviewed in the dayroom. Grooming is fair and he is oriented to month, year, location and circumstances. Patients eye contact is better and he appears less guarded. He definitely seems a little more spontaneous and brighter today though affect remains constricted. Patient reports that he feels more hopeful than hopeless and denies thoughts of harming himself or others. He has been offering support and his insight to other patients on the unit. Patient appears less preoccupied and more open. He doesn't present as overtly disorganized or psychotic. He is not responding to internal stimuli and denies perceptual disturbance. Anxiety and energy levels are improving. Thought process is fairly coherent and staff have noted that he appears more organized and less paranoid. Patient is sleeping better (though more restlessly last night ) and denies any new concerns. He reports that he is looking forward to discharge soon. Staff notes indicate that patient has been improving, his affect is brighter and more reactive. He communicates more readily with staff and is visible on the unit watching television. Patient is also attending groups and socializing more with select peers. Diagnostic Results: MDD with psychosis r/o RITESH cannabis abuse Rule out bipolar disorder Medication Change: Yes ( Miralax 17 grams po bid and Mag Citrate 200 ml x1. ) Medical Record Reviewed: Yes Mental Status Examination - Cognitive Function Orientation: Person, Place Memory: Impaired Attention: WNL (some improvement) Concentration: WNL (some improvement) Association: Loose Fund of Knowledge: Poor - Mood Mood: Depressed (better), Anxious - Affect Affect: Constricted (more reactive and related), Other ( ) - Speech Speech: Appropriate - Formal Thought Process Formal Thought Process: Paranoia (improved) - Suicidal Ideation Suicidal Ideation: No - Homicidal Ideation Homicidal Ideation: No Goal/Treatment Plan - Goal/Treatment Plan Need for Continued Stay: Remain at risks for inpatient hospitalization, Severe depression anxiety, Discharge may exacerbated symptoms, Severe functional impairment Progress Toward Problem(s) and Goals/Treatment Plan: * c/w current tx and plan * No new labs this weekend * Vitals reviewed and noted below: Selected Entries 02/03/18 06:49 Temperature 97.6 F Pulse Rate 68 Respiratory 16 Rate Blood Pressure 119/76 * Of note: Patient appears to respond and engage more openly with males. Medical student, Sunil has been meeting with patient daily and establishing rapport and trust. I was informed on 02/01/18 that patient continues to have constipation despite initiation of Colace. Dr. Ramos was curb-sided and recommended Miralax 17 grams po bid and Mag Citrate 200 ml x1. Staff notes indicate patient subsequently had a BM on this day Estimated Date of D/C: 02/06/18
[2018-02-04] MEDS: Pantoprazole 40 mg EC Tab PO SCH (06:40)
[2018-02-04 07:28] VITALS: RESP 20
[2018-02-04] MEDS: POLYETHYLENE GLYCOL 3350 17 GM/Dose PACKET PO SCH ×3 (08:38→16:05)
--- NOTE | 2018-02-04 15:19 | PCM.PYCHPN ---
Psychiatric Progress Note - Psychiatric Progress Note Patient seen today, length of contact: 30min Patient Chief Complaint: "I think I am doing better" Problems Identified/Issues Discussed: Suicide/ homicide prevention, past psychiatric h/o, current psychiatric symptoms , medical problems, risk/benefits and alternatives of medications, medications compliance, coping strategies, substance abuse h/o, relapse prevention, importance of follow up with psychiatrist and therapist, discharge plan. Medical Problems: hypotension dyslipidemia stomach ulcers patient was seen by hospitalist service Diagnostic Results: 01/28/18 11:30 01/28/18 11:30 Lab Results 01/29/18 07:54: TSH 3rd Generation 0.49 01/29/18 07:54: Fasting Glucose 74, Triglycerides 94, Cholesterol 190, LDL Cholesterol Direct 136 H, HDL Cholesterol 31 01/29/18 07:40: RPR Nonreactive 01/28/18 13:05: Urine Color Yellow, Urine Appearance Clear, Urine pH 6.5, Ur Specific [place] 1.025, Urine Protein Negative, Urine Glucose (UA) Negative, Urine Ketones Negative, Urine Blood Negative, Urine Nitrate Negative, Urine Bilirubin Negative, Urine Urobilinogen 0.2, Ur Leukocyte Esterase Negative 01/28/18 13:05: Urine Opiates Screen Negative, Urine Methadone Screen Negative, Ur Barbiturates Screen Negative, Ur Phencyclidine Scrn Negative, Ur Amphetamines Screen Negative, U Benzodiazepines Scrn Positive, U Oth Cocaine Metabols Negative, U Cannabinoids Screen Positive H 01/28/18 11:30: Alcohol, Quantitative < 10 01/28/18 11:30: Salicylates < 1 L, Acetaminophen < 10.0 L 01/28/18 11:30: Sodium 145, Potassium 3.7, Chloride 107, Carbon Dioxide 28, Anion Gap 14, BUN 12, Creatinine 1.3, Est GFR ( Amer) > 60, Est GFR (Non- Af Amer) > 60, Random Glucose 84, Calcium 10.0, Magnesium 2.0, Total Bilirubin 0.9, AST 29, ALT 38, Alkaline Phosphatase 52, Total Protein 7.6, Albumin 4.3, Globulin 3.3, Albumin/Globulin Ratio 1.3 01/28/18 11:30: WBC 6.3, RBC 4.93, Hgb 15.2, Hct 43.5, MCV 88.2, MCH 30.8, MCHC 34.9, RDW 13.1, Plt Count 169, MPV 10.1, Gran % 38.9 L, Lymph % (Auto) 44.9 H, Lane % (Auto) 10.6 H, Eos % (Auto) 5.4 H, Baso % (Auto) 0.2, Gran # 2.45, Lymph # (Auto) 2.8, Lane # (Auto) 0.7 H, Eos # (Auto) 0.3, Baso # (Auto) 0.01 Vital Signs Temp Pulse Resp BP Pulse Ox 01/30/18 07:30 97.3 F L 64 20 105/72 01/29/18 15:00 76 123/84 01/29/18 07:19 98.0 F 80 20 92/51 L 01/28/18 14:58 88 18 115/61 98 01/28/18 13:00 72 18 122/76 98 01/28/18 11:27 98.3 F 79 14 125/81 100 DSM 5 Symptoms Update: shortly patient is 22-year-old Male, self reported history of generalized anxiety disorder, history of depression, self reported history of more than 10 suicidal attempts, patient denied previous psychiatric admissions, strong family history of depression and anxiety, last year patient cousin committed suicide, patient was brought in by his roommates after being found unresponsive status post overdose on Xanax and alcohol, patient requires further evaluation and stabilization, medications titration. (of note pt has at least three back to back suicidal attempts, 01/26/18 by overdose on xanax, 01/27/18 trying to hang himself, 01/28/18 s/p overdose on xanax and liquor, pt was found unresponsive in apartment by his roommates. Patient was seen and examined at the treatment team meeting room. patient presented much better, patient reported being less depressed, less anxious, still patient has difficult to fall asleep but sleeps through the night , patient denied thoughts of harming himself or others, patient started to go to groups, patient reported that he tolerates medications well, no side effects observed or reported, aims 0, no EPS. As per staff reported, patient attends groups, less depressed, thought process is more organized, patient feels more comfortable on the unit, less paranoid. willing to have a family meeting with sister, SW will arrange it. DSM 5 Diagnosis: MDD with psychosis r/o RITESH cannabis abuse Rule out bipolar disorder Medication Change: Yes (prozac and remeron increased) Medical Record Reviewed: Yes Consults ordered or reviewed: medical consult by Mental Status Examination - Cognitive Function Orientation: Person, Place Memory: Impaired Attention: Poor (some improvement) Concentration: Poor (some improvement) Association: Loose Fund of Knowledge: Poor - Mood Mood: Depressed, Anxious - Affect Affect: Other (labile) - Speech Speech: Appropriate - Formal Thought Process Formal Thought Process: Paranoia ("I am not paranoid") - Suicidal Ideation Suicidal Ideation: No - Homicidal Ideation Homicidal Ideation: No Goal/Treatment Plan - Goal/Treatment Plan Need for Continued Stay: Remain at risks for inpatient hospitalization, Severe depression anxiety, Discharge may exacerbated symptoms, Severe functional impairment Progress Toward Problem(s) and Goals/Treatment Plan: Milieu/structure/supportive therapy Medical consult will be called for dyslipidemia as well as orthostatic hypotension. SW consultation for discharge plan and social issues Med management Prozac 30 mg by mouth daily for depression and anxiety and Klonopin 0.5 mg twice a day for anxiety and possible catatonic features Risperdal 0.5 mg bid for psychosis and mood stabilization Remeron at the nighttime for insomnia and for depression 45 mg Family involvement, family meeting with sister Diana Follow up on labs Will monitor closely Pt was educated about risk/benefits and alternatives of medications, coping strategies (safety plan, suicide prevention), relapse prevention, importance of follow up with psychiatrist and therapist, stay away from drugs/alcohol/smoking Estimated Date of D/C: 02/06/18
[2018-02-05] MEDS: Pantoprazole 40 mg EC Tab PO SCH (08:48)
[2018-02-05] MEDS: POLYETHYLENE GLYCOL 3350 17 GM/Dose PACKET PO SCH ×3 (08:48→16:30)
--- NOTE | 2018-02-05 14:16 | PCM.PYCHPN ---
Psychiatric Progress Note - Psychiatric Progress Note Patient seen today, length of contact: 30min Patient Chief Complaint: "I think I am doing better" Problems Identified/Issues Discussed: Suicide/ homicide prevention, past psychiatric h/o, current psychiatric symptoms , medical problems, risk/benefits and alternatives of medications, medications compliance, coping strategies, substance abuse h/o, relapse prevention, importance of follow up with psychiatrist and therapist, discharge plan. Medical Problems: hypotension dyslipidemia stomach ulcers patient was seen by hospitalist service Diagnostic Results: 01/28/18 11:30 01/28/18 11:30 Lab Results 01/29/18 07:54: TSH 3rd Generation 0.49 01/29/18 07:54: Fasting Glucose 74, Triglycerides 94, Cholesterol 190, LDL Cholesterol Direct 136 H, HDL Cholesterol 31 01/29/18 07:40: RPR Nonreactive 01/28/18 13:05: Urine Color Yellow, Urine Appearance Clear, Urine pH 6.5, Ur Specific [place] 1.025, Urine Protein Negative, Urine Glucose (UA) Negative, Urine Ketones Negative, Urine Blood Negative, Urine Nitrate Negative, Urine Bilirubin Negative, Urine Urobilinogen 0.2, Ur Leukocyte Esterase Negative 01/28/18 13:05: Urine Opiates Screen Negative, Urine Methadone Screen Negative, Ur Barbiturates Screen Negative, Ur Phencyclidine Scrn Negative, Ur Amphetamines Screen Negative, U Benzodiazepines Scrn Positive, U Oth Cocaine Metabols Negative, U Cannabinoids Screen Positive H 01/28/18 11:30: Alcohol, Quantitative < 10 01/28/18 11:30: Salicylates < 1 L, Acetaminophen < 10.0 L 01/28/18 11:30: Sodium 145, Potassium 3.7, Chloride 107, Carbon Dioxide 28, Anion Gap 14, BUN 12, Creatinine 1.3, Est GFR ( Amer) > 60, Est GFR (Non- Af Amer) > 60, Random Glucose 84, Calcium 10.0, Magnesium 2.0, Total Bilirubin 0.9, AST 29, ALT 38, Alkaline Phosphatase 52, Total Protein 7.6, Albumin 4.3, Globulin 3.3, Albumin/Globulin Ratio 1.3 01/28/18 11:30: WBC 6.3, RBC 4.93, Hgb 15.2, Hct 43.5, MCV 88.2, MCH 30.8, MCHC 34.9, RDW 13.1, Plt Count 169, MPV 10.1, Gran % 38.9 L, Lymph % (Auto) 44.9 H, [place] % (Auto) 10.6 H, Eos % (Auto) 5.4 H, Baso % (Auto) 0.2, Gran # 2.45, Lymph # (Auto) 2.8, [place] # (Auto) 0.7 H, Eos # (Auto) 0.3, Baso # (Auto) 0.01 Vital Signs Temp Pulse Resp BP Pulse Ox 01/30/18 07:30 97.3 F L 64 20 105/72 01/29/18 15:00 76 123/84 01/29/18 07:19 98.0 F 80 20 92/51 L 01/28/18 14:58 88 18 115/61 98 01/28/18 13:00 72 18 122/76 98 01/28/18 11:27 98.3 F 79 14 125/81 100 DSM 5 Symptoms Update: shortly patient is 22-year-old Male, self reported history of generalized anxiety disorder, history of depression, self reported history of more than 10 suicidal attempts, patient denied previous psychiatric admissions, strong family history of depression and anxiety, last year patient cousin committed suicide, patient was brought in by his roommates after being found unresponsive status post overdose on Xanax and alcohol, patient requires further evaluation and stabilization, medications titration. (of note pt has at least three back to back suicidal attempts, 01/26/18 by overdose on xanax, 01/27/18 trying to hang himself, 01/28/18 s/p overdose on xanax and liquor, pt was found unresponsive in apartment by his roommates. Patient was seen and examined in the hallway, next to the nursing station, personal hygiene much better, affect is more reactive, thought process is more organized, patient appears to be less depressed. Patient reported that she likes the medication setting what he is taking right now, patient denied any side effects, medications risk, benefits, alternatives discussed with the patient. Risperdal will be discontinued because most likely patient was confused as well as paranoid due to overdose as well as patient was under the influence of marijuana. sleep is much better. As per staff reported, patient attends groups, less depressed, thought process is more organized, patient feels more comfortable on the unit, less paranoid. willing to have a family meeting with sister, 02/06/18 DSM 5 Diagnosis: MDD with psychosis r/o RITESH cannabis abuse Rule out bipolar disorder Medication Change: Yes (Risperdal discontinued, Prozac increased) Medical Record Reviewed: Yes Mental Status Examination - Cognitive Function Orientation: Person, Place Memory: Impaired Attention: Poor (some improvement) Concentration: Poor (some improvement) Association: Loose Fund of Knowledge: Poor - Mood Mood: Depressed, Anxious - Affect Affect: Other (labile) - Speech Speech: Appropriate - Formal Thought Process Formal Thought Process: Paranoia ("I am not paranoid") - Suicidal Ideation Suicidal Ideation: No - Homicidal Ideation Homicidal Ideation: No Goal/Treatment Plan - Goal/Treatment Plan Need for Continued Stay: Remain at risks for inpatient hospitalization, Severe depression anxiety, Discharge may exacerbated symptoms, Severe functional impairment Progress Toward Problem(s) and Goals/Treatment Plan: Milieu/structure/supportive therapy Medical consult will be called for dyslipidemia as well as orthostatic hypotension. consultation for discharge plan and social issues Med management Prozac 40 mg by mouth daily for depression and anxiety and Klonopin 0.5 mg twice a day for anxiety and possible catatonic features Risperdal iscontinue Remeron at the nighttime for insomnia and for depression 45 mg Family involvement, family meeting with sister Diana Follow up on labs Will monitor closely Pt was educated about risk/benefits and alternatives of medications, coping strategies (safety plan, suicide prevention), relapse prevention, importance of follow up with psychiatrist and therapist, stay away from drugs/alcohol/smoking Estimated Date of D/C: 02/06/18
[2018-02-06] MEDS: Pantoprazole 40 mg EC Tab PO SCH (06:49)
[2018-02-06] MEDS: POLYETHYLENE GLYCOL 3350 17 GM/Dose PACKET PO SCH ×3 (08:39→15:10)
--- NOTE | 2018-02-06 15:36 | CP.PCM.PN ---
<Theresa Panda - Last Filed: 02/06/18 15:32> Subjective - Date & Time of Evaluation Date of Evaluation: 02/06/18 Time of Evaluation: 15:32 - Subjective Subjective: Hospitalist Note for Gerson Bhatt PGY2 Patient was complaining of L eye redness and itching for 2 days. He reports this happens every year. He denies having any discharge, pain, ear pain, fever/ chills. Patient reports he has seasonal allergies. He denies chest pain, shortness of breath, nausea/vomiting, allergies to food/medicine. Otherwise he feels well. Objective - Vital Signs/Intake and Output Vital Signs (last 24 hours): Temp Pulse Resp BP Pulse Ox 98.2 F 87 20 137/94 H 98 02/06/18 07:29 02/06/18 07:29 02/06/18 07:29 02/06/18 07:29 01/28/18 14:58 - Medications Medications: Current Medications Acetaminophen (Tylenol 325mg Tab) 650 mg PO Q6H PRN PRN Reason: Pain, moderate (4-7) Last Admin: 02/01/18 23:54 Dose: 650 mg Al Hydrox/Mg Hydrox/Simethicone (Maalox Plus 30 Ml) 30 ml PO DAILY PRN PRN Reason: Indigestion / Heartburn Last Admin: 02/01/18 10:22 Dose: 30 ml Clonazepam (Klonopin) 0.5 mg PO BID [facility] PRN Reason: Protocol Last Admin: 02/06/18 15:14 Dose: 0.5 mg Fluoxetine HCl (Prozac) 40 mg PO DAILY [facility] Last Admin: 02/06/18 08:36 Dose: 40 mg Loratadine (Claritin) 10 mg PO DAILY [facility] Last Admin: 02/06/18 08:36 Dose: 10 mg Lorazepam (Ativan) 1 mg PO TID PRN; Protocol PRN Reason: Anxiety Last Admin: 01/31/18 21:02 Dose: 1 mg Lorazepam (Ativan) 1 mg IM Q6H PRN; Protocol PRN Reason: Anxiety Last Admin: 01/28/18 23:44 Dose: 1 mg Magnesium Hydroxide (Milk Of Magnesia) 30 ml PO DAILY PRN PRN Reason: Constipation Mirtazapine (Remeron) 45 mg PO HS [facility] Last Admin: 02/05/18 21:58 Dose: 45 mg Nicotine (Nicoderm Cq) 1 patch TD DAILY [facility] Last Admin: 02/06/18 08:42 Dose: 1 patch Pantoprazole Sodium (Protonix Ec Tab) 40 mg PO 0600 [facility] Last Admin: 02/06/18 06:49 Dose: 40 mg Polyethylene Glycol (Miralax) 17 gm PO DAILY [facility] Last Admin: 02/06/18 08:39 Dose: 17 gm Polyethylene Glycol (Miralax) 17 gm PO BID [facility] Last Admin: 02/06/18 15:10 Dose: Not Given Ziprasidone (Geodon Inj) 20 mg IM Q6H PRN; Protocol PRN Reason: Agitation - Constitutional Appears: No Acute Distress - Head Exam Head Exam: ATRAUMATIC, NORMAL INSPECTION, NORMOCEPHALIC - Eye Exam Eye Exam: Conjunctival injection (on L ), PERRL. absent: Periorbital swelling Pupil Exam: NORMAL ACCOMODATION, PERRL Additional comments: No discharge, swelling. L eye appears red and watery. R eye is normal. - ENT Exam ENT Exam: Mucous Membranes Moist - Respiratory Exam Respiratory Exam: Clear to Ausculation Bilateral, NORMAL BREATHING PATTERN. absent: Rales, Rhonchi, Wheezes - Cardiovascular Exam Cardiovascular Exam: REGULAR RHYTHM, +S1, +S2. absent: Gallop, Rubs, Murmur - GI/Abdominal Exam GI & Abdominal Exam: Soft, Normal Bowel Sounds. absent: Tenderness - Rectal Exam Rectal Exam: NORMAL INSPECTION - Extremities Exam Extremities Exam: Normal Inspection. absent: Calf Tenderness, Pedal Edema - Neurological Exam Neurological Exam: Alert, Awake, CN II-XII Intact, Normal Gait, Oriented x3 - Skin Skin Exam: Dry, Intact, Warm Assessment and Plan - Assessment and Plan (Free Text) Assessment: Patient is 22yo male who is admitted to psych for depression. Medicine was asked to evaluate patient for L eye redness which is most likely allergic in nature. Plan: 1. L eye redness - secondary to seasonal allergy - Afebrile, no discharge seen in eye - Pt can use Pataday drop once per day - Pt can also use visine in both eyes for any irritation Case seen, discussed and reviewed with Dr. Deras. Gerson Panda PGY2 <Collette Deras - Last Filed: 02/06/18 16:26> Objective - Vital Signs/Intake and Output Vital Signs (last 24 hours): Temp Pulse Resp BP Pulse Ox 98.2 F 86 20 128/90 98 02/06/18 07:29 02/06/18 16:03 02/06/18 07:29 02/06/18 16:03 01/28/18 14:58 - Medications Medications: Current Medications Acetaminophen (Tylenol 325mg Tab) 650 mg PO Q6H PRN PRN Reason: Pain, moderate (4-7) Last Admin: 02/01/18 23:54 Dose: 650 mg Al Hydrox/Mg Hydrox/Simethicone (Maalox Plus 30 Ml) 30 ml PO DAILY PRN PRN Reason: Indigestion / Heartburn Last Admin: 02/01/18 10:22 Dose: 30 ml Clonazepam (Klonopin) 0.5 mg PO BID [facility] PRN Reason: Protocol Last Admin: 02/06/18 15:14 Dose: 0.5 mg Fluoxetine HCl (Prozac) 40 mg PO DAILY [facility] Last Admin: 02/06/18 08:36 Dose: 40 mg Loratadine (Claritin) 10 mg PO DAILY [facility] Last Admin: 02/06/18 08:36 Dose: 10 mg Lorazepam (Ativan) 1 mg PO TID PRN; Protocol PRN Reason: Anxiety Last Admin: 01/31/18 21:02 Dose: 1 mg Lorazepam (Ativan) 1 mg IM Q6H PRN; Protocol PRN Reason: Anxiety Last Admin: 01/28/18 23:44 Dose: 1 mg Magnesium Hydroxide (Milk Of Magnesia) 30 ml PO DAILY PRN PRN Reason: Constipation Mirtazapine (Remeron) 45 mg PO HS [facility] Last Admin: 02/05/18 21:58 Dose: 45 mg Nicotine (Nicoderm Cq) 1 patch TD DAILY [facility] Last Admin: 02/06/18 08:42 Dose: 1 patch Olopatadine HCl (Patanol 0.1% Opht Soln) 0 ml OS DAILY [facility] Last Admin: 02/06/18 16:19 Dose: 1 heriberto Pantoprazole Sodium (Protonix Ec Tab) 40 mg PO 0600 [facility] Last Admin: 02/06/18 06:49 Dose: 40 mg Polyethylene Glycol (Miralax) 17 gm PO DAILY [facility] Last Admin: 02/06/18 08:39 Dose: 17 gm Polyethylene Glycol (Miralax) 17 gm PO BID [facility] Last Admin: 02/06/18 15:10 Dose: Not Given Risperidone (Risperdal Tab) 0.5 mg PO [facility] PRN Reason: Protocol Tetrahydrozoline HCl/Zinc Sulfate (Visine 0.05% Opht Soln) 0 ml OU DAILY [facility] Ziprasidone (Geodon Inj) 20 mg IM Q6H PRN; Protocol PRN Reason: Agitation Attending/Attestation - Attestation I have personally seen and examined this patient.: Yes I have fully participated in the care of the patient.: Yes I have reviewed all pertinent clinical information, including history, physical exam and plan: Yes Notes (Text): 02/06/18 16:24 22 year old male currently admitted in psychiatric unit for depression. Medical follow up was requested for evaluation of left eye redness, possibly allergic in nature. Agree with visine eye drops. Collette Deras MD Hospitalist.
--- NOTE | 2018-02-06 16:04 | PCM.PYCHPN ---
Psychiatric Progress Note - Psychiatric Progress Note Patient seen today, length of contact: 30min Patient Chief Complaint: "I am doing much better, thank you" Problems Identified/Issues Discussed: Suicide/ homicide prevention, past psychiatric h/o, current psychiatric symptoms , medical problems, risk/benefits and alternatives of medications, medications compliance, coping strategies, substance abuse h/o, relapse prevention, importance of follow up with psychiatrist and therapist, discharge plan. Medical Problems: hypotension dyslipidemia stomach ulcers patient was seen by hospitalist service Diagnostic Results: 01/28/18 11:30 01/28/18 11:30 Lab Results 01/29/18 07:54: TSH 3rd Generation 0.49 01/29/18 07:54: Fasting Glucose 74, Triglycerides 94, Cholesterol 190, LDL Cholesterol Direct 136 H, HDL Cholesterol 31 01/29/18 07:40: RPR Nonreactive 01/28/18 13:05: Urine Color Yellow, Urine Appearance Clear, Urine pH 6.5, Ur Specific [place] 1.025, Urine Protein Negative, Urine Glucose (UA) Negative, Urine Ketones Negative, Urine Blood Negative, Urine Nitrate Negative, Urine Bilirubin Negative, Urine Urobilinogen 0.2, Ur Leukocyte Esterase Negative 01/28/18 13:05: Urine Opiates Screen Negative, Urine Methadone Screen Negative, Ur Barbiturates Screen Negative, Ur Phencyclidine Scrn Negative, Ur Amphetamines Screen Negative, U Benzodiazepines Scrn Positive, U Oth Cocaine Metabols Negative, U Cannabinoids Screen Positive H 01/28/18 11:30: Alcohol, Quantitative < 10 01/28/18 11:30: Salicylates < 1 L, Acetaminophen < 10.0 L 01/28/18 11:30: Sodium 145, Potassium 3.7, Chloride 107, Carbon Dioxide 28, Anion Gap 14, BUN 12, Creatinine 1.3, Est GFR ( Amer) > 60, Est GFR (Non- Af Amer) > 60, Random Glucose 84, Calcium 10.0, Magnesium 2.0, Total Bilirubin 0.9, AST 29, ALT 38, Alkaline Phosphatase 52, Total Protein 7.6, Albumin 4.3, Globulin 3.3, Albumin/Globulin Ratio 1.3 01/28/18 11:30: WBC 6.3, RBC 4.93, Hgb 15.2, Hct 43.5, MCV 88.2, MCH 30.8, MCHC 34.9, RDW 13.1, Plt Count 169, MPV 10.1, Gran % 38.9 L, Lymph % (Auto) 44.9 H, Edgar % (Auto) 10.6 H, Eos % (Auto) 5.4 H, Baso % (Auto) 0.2, Gran # 2.45, Lymph # (Auto) 2.8, Edgar # (Auto) 0.7 H, Eos # (Auto) 0.3, Baso # (Auto) 0.01 Vital Signs Temp Pulse Resp BP Pulse Ox 01/30/18 07:30 97.3 F L 64 20 105/72 01/29/18 15:00 76 123/84 01/29/18 07:19 98.0 F 80 20 92/51 L 01/28/18 14:58 88 18 115/61 98 01/28/18 13:00 72 18 122/76 98 01/28/18 11:27 98.3 F 79 14 125/81 100 DSM 5 Symptoms Update: shortly patient is 22-year-old Male, self reported history of generalized anxiety disorder, history of depression, self reported history of more than 10 suicidal attempts, patient denied previous psychiatric admissions, strong family history of depression and anxiety, last year patient cousin committed suicide, patient was brought in by his roommates after being found unresponsive status post overdose on Xanax and alcohol, patient requires further evaluation and stabilization, medications titration. (of note pt has at least three back to back suicidal attempts, 01/26/18 by overdose on xanax, 01/27/18 trying to hang himself, 01/28/18 s/p overdose on xanax and liquor, pt was found unresponsive in apartment by his roommates. Patient was seen and examined at the treatment team meeting with his sister Diana, patient presented well, patient reported that he improved significantly, patient was compliant with assignment she was given yesterday, patient was very able to verbalize safety plan, patient reported that in case of suicidal ideation he will "first I will call my sister, if she is not available I will call 911, or I will come to the hospital, you don't have to be concerned about me, my thoughts are in the future but not in the past." Patient said that she has future plans to find a job, patient willing to have outpatient treatment at intensive outpatient program at [facility], patient reported that his mood improved significantly, he is able to concentrate better, patient adamantly denied thoughts of harming himself or others, patient reported that his sleep improved, pt did not ask for any prn meds. as per sister, pt was not doing well prior to this hospitalization, pt tried to look for outpatient tx but was still depressed, as per sister pt looks "much better", and she was willing to provide financial support for the pt to be able to complete IOP program. As per staff reported, patient attends groups, less depressed, thought process is more organized, patient feels more comfortable on the unit, less paranoid. risperdal was d/c yesterday, so far pt tolerated it well. DSM 5 Diagnosis: MDD with psychosis r/o RITESH cannabis abuse Rule out bipolar disorder Medication Change: Yes (Risperdal discontinued, Prozac increased) Medical Record Reviewed: Yes Mental Status Examination - Cognitive Function Orientation: Person, Place Memory: Impaired Attention: Poor (improvement) Concentration: Poor (improvement) Association: WNL Fund of Knowledge: WNL - Mood Mood: Depressed ("I am doing much better"), Anxious ("I am not that anxious") - Affect Affect: Other (labile) - Speech Speech: Appropriate - Formal Thought Process Formal Thought Process: No Impairment - Suicidal Ideation Suicidal Ideation: No - Homicidal Ideation Homicidal Ideation: No Goal/Treatment Plan - Goal/Treatment Plan Need for Continued Stay: Remain at risks for inpatient hospitalization, Severe depression anxiety, Discharge may exacerbated symptoms, Severe functional impairment Progress Toward Problem(s) and Goals/Treatment Plan: Milieu/structure/supportive therapy Medical consult will be called for dyslipidemia as well as orthostatic hypotension. consultation for discharge plan and social issues Med management Prozac 40 mg by mouth daily for depression and anxiety and Klonopin 0.5 mg twice a day for anxiety and possible catatonic features Risperdal discontinued Remeron at the nighttime for insomnia and for depression 45 mg Family involvement, family meeting with sister Diana Follow up on labs Will monitor closely Pt was educated about risk/benefits and alternatives of medications, coping strategies (safety plan, suicide prevention), relapse prevention, importance of follow up with psychiatrist and therapist, stay away from drugs/alcohol/smoking Estimated Date of D/C: 02/07/18
[2018-02-06] MEDS: Olopatadine 0.1% Opht Sol OS SCH (16:19)
--- NOTE | 2018-02-06 16:19 | CP.PCM.PCO ---
Physician Communication Note - Physician Communication Note Physician Communication Note: pt was mildly paranoid, willing to go back on risperdal
[2018-02-07 07:11] VITALS: BP 129/81; PULSE 88; TEMP 97.4
[2018-02-07] MEDS: Pantoprazole 40 mg EC Tab PO SCH (07:48)
[2018-02-07] MEDS ORDERED: Tetrahydrozoline Opht 0.05% Sol (15 ml) OU SCH (08:00)
[2018-02-07] MEDS: POLYETHYLENE GLYCOL 3350 17 GM/Dose PACKET PO SCH ×2 (08:17)
[2018-02-07] MEDS: Olopatadine 0.1% Opht Sol OS SCH (08:19)
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
== END 2018-02-07 15:16 | disposition home or self-care (01) | DRG 885 ==
LOC: ED 10:55 → ERH 14:37 → PSYC 16:11
PROVIDERS: ADMIT Psychiatry & Neurology Psychiatry; ATTEND Psychiatry & Neurology Psychiatry
PROC: GZ3ZZZZ Medication Management (ICD-10-PCS; principal; 2018-01-29)
DX: F32.3 Major depressive disorder, single episode, severe with psychotic features (principal); T42.4X2A Poisoning by benzodiazepines, intentional self-harm, initial encounter; F41.1 Generalized anxiety disorder; F12.10 Cannabis abuse, uncomplicated; I95.1 Orthostatic hypotension; E78.5 Hyperlipidemia, unspecified; K59.09 Other constipation; K21.9 Gastro-esophageal reflux disease without esophagitis; K25.9 Gastric ulcer, unspecified as acute or chronic, without hemorrhage or perforation; F17.210 Nicotine dependence, cigarettes, uncomplicated; G47.00 Insomnia, unspecified; Z91.5 Personal history of self-harm; Z81.8 Family history of other mental and behavioral disorders; Z80.0 Family history of malignant neoplasm of digestive organs; Z83.3 Family history of diabetes mellitus

== ENCOUNTER 2018-03-21 15:55 | Inpatient (IN) | payer MEDICAID, OTHER ==
[2018-03-21 16:26] VITALS: BMI 22.8
--- NOTE | 2018-03-21 16:38 | ED PDOC ---
Arrival/HPI - General Time Seen by Provider: 03/21/18 15:57 Historian: Patient - History of Present Illness Narrative History of Present Illness (Text): 03/21/18 16:26 22yo male with PMhx of Depression and bipolar who present with complaint of depression and suicidal ideation. States he stopped going to his program 4days ago because he didn't think is helping him. He have no plan. states he is compliant with his medication. Denies homicidal ideation, somatic complaint, any other complaint. Past Medical History - Provider Review Nursing Documentation Reviewed: Yes - Past History Past History: No Previous - Infectious Disease Hx of Infectious Diseases: None - Tetanus Immunization Tetanus Immunization: Unknown - Past Medical History Past Medical History: No Previous - Cardiac Hx Cardiac Disorders: No - Pulmonary Hx Respiratory Disorders: No - Neurological Hx Neurological Disorder: No - HEENT Hx HEENT Disorder: No - Renal Hx Renal Disorder: No - Endocrine/Metabolic Hx Endocrine Disorders: No - Hematological/Oncological Hx Blood Disorders: No - Integumentary Hx Dermatological Disorder: No - Musculoskeletal/Rheumatological Hx Musculoskeletal Disorders: No - Gastrointestinal Hx Gastrointestinal Disorders: No - Genitourinary/Gynecological Hx Genitourinary Disorders: No - Psychiatric Hx Substance Use: Yes - Past Surgical History Past Surgical History: No Previous - Anesthesia Hx Anesthesia: No - Suicidal Assessment Feels Threatened In Home Enviroment: No Family/Social History - Physician Review Nursing Documentation Reviewed: Yes Family/Social History: Unknown Family HX Smoking Status: Heavy Smoker > 10 Cigarettes Daily Hx Alcohol Use: Yes Hx Substance Use: Yes Hx Substance Use Treatment: No Allergies/Home Meds Allergies/Adverse Reactions: Allergies No Known Allergies Allergy (Verified 03/21/18 18:07) Review of Systems - Physician Review All systems were reviewed & negative as marked: Yes - Review of Systems Constitutional: Normal Eyes: Normal ENT: Normal Respiratory: Normal Cardiovascular: Normal Gastrointestinal: Normal Genitourinary Male: Normal Musculoskeletal: Normal Skin: Normal Neurological: Normal Endocrine: Normal Hemo/Lymphatic: Normal Psychiatric: Depression, Suicidal Ideation Physical Exam Vital Signs Reviewed: Yes Vital Signs Temp Pulse Resp BP Pulse Ox 03/21/18 16:14 98.7 F 103 H 18 135/83 100 Temperature: Afebrile Blood Pressure: Normal Pulse: Regular Respiratory Rate: Normal Appearance: Positive for: Well-Appearing, Non-Toxic, Comfortable Pain Distress: None Mental Status: Positive for: Alert and Oriented X 3 - Systems Exam Head: Present: Atraumatic, Normocephalic Pupils: Present: PERRL Extroacular Muscles: Present: EOMI Conjunctiva: Present: Normal Mouth: Present: Moist Mucous Membranes Neck: Present: Normal Range of Motion Respiratory/Chest: Present: Clear to Auscultation, Good Air Exchange. No: Respiratory Distress, Accessory Muscle Use Cardiovascular: Present: Regular Rate and Rhythm, Normal S1, S2. No: Murmurs Abdomen: No: Tenderness, Distention, Peritoneal Signs Back: Present: Normal Inspection Upper Extremity: Present: Normal Inspection. No: Cyanosis, Edema Lower Extremity: Present: Normal Inspection. No: Edema Neurological: Present: GCS=15, CN II-XII Intact, Speech Normal Skin: Present: Warm, Dry, Normal Color. No: Rashes Psychiatric: Present: Alert, Oriented x 3, Normal Insight, Normal Concentration , Depressed Mood. No: Normal Affect (Flat affect) Medical Decision Making ED Course and Treatment: 03/21/18 18:43 PT was seen and cleared medically for psychiatric evaluation. she was seen by TAHIRA Florez. she DC with the psychiatric and pt will be admitted to psych for major depression. - Lab Interpretations Lab Results: 03/21/18 16:24 03/21/18 16:24 Lab Results 03/21/18 16:24: Alcohol, Quantitative < 10 03/21/18 16:24: Salicylates < 1 L, Acetaminophen < 10.0 L 03/21/18 16:24: Urine Opiates Screen Negative, Urine Methadone Screen Negative, Ur Barbiturates Screen Negative, Ur Phencyclidine Scrn Negative, Ur Amphetamines Screen Negative, U Benzodiazepines Scrn Negative, U Oth Cocaine Metabols Positive H, U Cannabinoids Screen Negative 03/21/18 16:24: Sodium 144, Potassium 3.9, Chloride 107, Carbon Dioxide 23, Anion Gap 18, BUN 11, Creatinine 0.9, Est GFR ( Amer) > 60, Est GFR (Non- Af Amer) > 60, Random Glucose 95, Calcium 9.3, Magnesium 1.9, Total Bilirubin 0.4, AST 74 H D, ALT 130 H, Alkaline Phosphatase 55, Total Protein 7.6, Albumin 4.3, Globulin 3.3, Albumin/Globulin Ratio 1.3 03/21/18 16:24: Urine Color Yellow, Urine Appearance Sl cloudy, Urine pH 7.5, Ur Specific [place] 1.020, Urine Protein Negative, Urine Glucose (UA) Negative, Urine Ketones Negative, Urine Blood Negative, Urine Nitrate Negative, Urine Bilirubin Negative, Urine Urobilinogen 0.2, Ur Leukocyte Esterase Negative 03/21/18 16:24: WBC 7.1, RBC 5.00, Hgb 15.3, Hct 44.4, MCV 88.8, MCH 30.6, MCHC 34.5, RDW 13.3, Plt Count 195, MPV 9.2, Gran % 44.5 L, Lymph % (Auto) 44.6 H, [place] % (Auto) 8.9 H, Eos % (Auto) 1.7, Baso % (Auto) 0.3, Gran # 3.16, Lymph # ( Auto) 3.2, [place] # (Auto) 0.6, Eos # (Auto) 0.1, Baso # (Auto) 0.02 Disposition/Present on Arrival - Present on Arrival Any Indicators Present on Arrival: No History of DVT/PE: No History of Uncontrolled Diabetes: No Urinary Catheter: No History Surgical Site Infection Following: None - Disposition Have Diagnosis and Disposition been Completed?: Yes Diagnosis: MDD (major depressive disorder) Disposition: HOSPITALIZED Disposition Time: 18:20 Patient Plan: Admission Patient Problems: Current Active Problems Problem Status Onset MDD (major depressive disorder) Chronic Condition: STABLE
[2018-03-21 16:56] LABS: BASO # 0.02 K/mm3 (0.0-2.0); BASO % 0.3 % (0.0-3.0); EOS # 0.1 (0.0-0.7); EOS % 1.7 % (1.5-5.0); GRAN # 3.16 (1.4-6.5); GRAN % 44.5 % (50.0-68.0); HEMOGLOBIN 15.3 g/dL (14.0-18.0); LYMPH # 3.2 (1.2-3.4); LYMPH % 44.6 % (22.0-35.0); MEAN CELL VOLUME 88.8 fl (80.0-105.0); MEAN CORPUSCULAR HEMOGLOBIN 30.6 pg (25.0-35.0); MEAN CORPUSCULAR HGB CONC 34.5 g/dl (31.0-37.0); MEAN PLATELET VOLUME 9.2 fl (7.0-11.0); MONO # 0.6 (0.1-0.6); MONO % 8.9 % (1.0-6.0); RED CELL DISTRIBUTION WIDTH 13.3 % (11.5-14.5); WHITE BLOOD COUNT 7.1 10^3/ul (4.5-11.0)
[2018-03-21 16:57] LABS: PH,URINE 7.5 (4.7-8.0); URINE BILIRUBIN NEGATIVE (NEGATIVE); URINE BLOOD NEGATIVE (NEGATIVE); URINE GLUCOSE (UA) NEGATIVE (NEGATIVE); URINE LEUKOCYTE ESTERASE NEGATIVE Leu/uL (NEGATIVE); URINE PROTEIN NEGATIVE mg/dL (<30 mg/dL); URINE UROBILINOGEN 0.2 E.U./dL (<1 E.U./dL)
[2018-03-21 16:58] LABS: URINE APPEARANCE SL CLOUDY (CLEAR); URINE COLOR YELLOW (YELLOW)
[2018-03-21 17:03] LABS: ALB/GLOB RATIO 1.3 (1.1-1.8); ALBUMIN 4.3 g/dL (3.0-4.8); ALT/SGPT 130 U/L (7-56); AST/SGOT 74 U/L (17-59); BLOOD UREA NITROGEN 11 mg/dL (7-21); CALCIUM 9.3 mg/dL (8.4-10.5); GFR AFRICAN-AMERICAN > 60; GFR NON-AFRICAN AMERICAN > 60
[2018-03-21 17:04] LABS: ACETAMINOPHEN < 10.0 ug/ml (10.0-20.0); SALICYLATE < 1 mg/dL (2.0-20.0)
[2018-03-21 17:19] LABS: BARBITURATES, UR NEGATIVE (NEGATIVE); BENZODIAZEPINES, UR NEGATIVE (NEGATIVE); OPIATES, UR NEGATIVE (NEGATIVE); PHENCYCLIDINE, UR NEGATIVE (NEGATIVE)
[2018-03-21] MEDS ORDERED: Alum-Mag Hydrox-Simethicone Susp (30 mL) PO PRN (23:30)
[2018-03-21] MEDS ORDERED: Magnesium Hydroxide Susp 30 ml UD PO PRN (23:30)
[2018-03-21 23:57] VITALS: O2SAT 98
--- NOTE | 2018-03-22 03:02 | PCM.BM ---
<Cirilo Raphaelhailey - Last Filed: 03/22/18 02:59> Treatment Plan Problems - Problems identified on initial assessmt Anxiety Date Initiated: 03/21/18 Time Initiated: 23:15 Assessment reference: NA Status: Active Priority: 1 Anxiety related to substance use Date Initiated: 03/21/18 Time Initiated: 23:15 Assessment reference: NA Status: Active Priority: 2 Suicidal ideation Date Initiated: 03/21/18 Time Initiated: 23:15 Assessment reference: NA Status: Referred Priority: 3 Ineffective coping Date Initiated: 03/21/18 Time Initiated: 23:15 Assessment reference: NA Status: Active Priority: 4 Treatment assets and liabiliti Patient Assests: cooperative, self-reliant, ADL independent, negotiates basic needs, cognitively intact Patient Liabilities: poor support system, substance abuse - Milieu Protocol Maintain good personal hygiene: daily Encourage regular showers, daily Remind patient to perform daily oral care, daily Assist patient to perform ADL's Conduct patient checks and document Observation sheet: Q15 minutes Maintain personal safety: every shift Educate patient to report safety concerns to staff, every shift Monitor environment for contraband/sharps Medication safety: Monitor for expected outcome, potential side effects: every shift, Assess barriers to learning: every shift, Assess readiness for medication education: every shift Discharge/Continuing Care - Education Needs Education Needs: Patient Medication, Patient Diagnosis/Disease Process, Patient Coping Skills, Patient Community resources - Discharge Discharge Criteria: Free of Suicidal thoughts, Normal sleep pattern <Hagan,Zblaisemodesta - Last Filed: 03/22/18 13:24> - Diagnosis (1) Cocaine abuse Status: Acute Interventions: group, milieu and supportive tx klonopin 0.5 mg po bid for anxiety and mood control Prozac 40 mg po AM for depression and anxiety Remeron 45 mg po HS for depression and off-label to help with sleep Risperdal 0.5/0.5 to help with impulse control, considering replacing with abilify as abilify can also be beneficial for depression. Sonata 5 mg HS prn: insomnia 03/22/18 13:25 (2) MDD (major depressive disorder) Status: Chronic Interventions: group, milieu and supportive tx klonopin 0.5 mg po bid for anxiety and mood control Prozac 40 mg po AM for depression and anxiety Remeron 45 mg po HS for depression and off-label to help with sleep Risperdal 0.5/0.5 to help with impulse control, considering replacing with abilify as abilify can also be beneficial for depression. Sonata 5 mg HS prn: insomnia 03/22/18 13:25 (3) RITESH (generalized anxiety disorder) Status: Acute Interventions: group, milieu and supportive tx klonopin 0.5 mg po bid for anxiety and mood control Prozac 40 mg po AM for depression and anxiety Remeron 45 mg po HS for depression and off-label to help with sleep Risperdal 0.5/0.5 to help with impulse control, considering replacing with abilify as abilify can also be beneficial for depression. Sonata 5 mg HS prn: insomnia 03/22/18 13:25 <Kamini Boyd - Last Filed: 03/22/18 14:30> Family Contact Family involvement: Famliy/SO not involved
[2018-03-22 06:47] VITALS: RESP 20
--- NOTE | 2018-03-22 07:52 | CARD ---
APPROVED REPORT EKG Measurement Heart [id number] <Conclusion> Sinus tachycardia Possible Left atrial enlargement Borderline ECG
[2018-03-22 08:41] LABS: GLUCOSE,FASTING 94 mg/dL (65-110); HDL CHOLESTEROL 47 mg/dL (29-60)
[2018-03-22 08:51] LABS: LDL CHOLESTEROL 146 mg/dL (0-129)
[2018-03-22] MEDS: Pantoprazole 40 mg EC Tab PO SCH (09:20)
--- NOTE | 2018-03-22 13:24 | PCM.PSYCH ---
Initial Psychiatric Evaluation - Initial Psychiatric Evaluation Type of Admission: Voluntary Legal Status: Capacity History of Present Illness and Precipitating Events: Patient is 22-year-old single Filipino male with history of major depressive disorder and generalized anxiety disorder, one prior psychiatric admission to [facility] (January 28 to February 07, 2018), Compliant with daily outpatient treatment program at [facility] untill the last week and reportedly compliant with psychiatric medications, self reported history of more than 10 suicidal attempts-most recently overdosed on Xanax and alcohol last month which led to the aforementioned admission who brought himself to the ER with complaints of depression and suicidal thoughts without plan. I reviewed patient's chart and met with patient at bedside as well as during treatment team meeting. His grooming is fair and patient is oriented to month, year, location and circumstance. He is calm during my questioning thought affect is preoccupied and constricted. Admits to depression, poor energy, anhedonia, some lability, "sleeping too much" and low frustration tolerance. [place] his psychiatric medications were initially beneficial but doesn't feel they are beneficial any longer. He denies any new stressors. Patient also denied drug use however UDS returned + for cocaine. Thought process is fairly coherent and responses are relevant. He isn't responding to internal stimuli. Delusions were not elicited and he doesn't appear overly paranoid or hypervigilant but he is guarded. Thus far he is tolerating his current medications and denies s/e, new discomfort or pain. Doesn't appear to be in any physical distress. There were no behavioral issues overnight. PSYCHIATRIC HISTORY One prior hospitalization at [facility] from January 28 to February 07, 2018. Patient was given a psychiatric diagnosis of major depressive disorder and RITESH. Patient was discharged on: Klonopin 0.5 mg PO BID Prozac 40 mg PO DAILY Remeron 45 mg PO HS Risperdal 0.5 mg PO AMHS Patient reportedly followed up with [facility] day treatment program however has not been compliant with the program for the past week due to depression. Patient took wellbutrin and buspar in the past with no benefit. Patient reported that he has more than 10 suicidal attempts in the past. Prior records indicate that patient tried to cut his wrist at the age of 9. patient did not tell anyone, patient said it was related to the fact that his father was incarcerated and mother had from the hepatitis C. Strong family history of depression and anxiety, last year patient's cousin committed suicide SOCIAL HISTORY Patient was born and raised in [place]. He single without any children. He has a GED and is currently unemployed. Patient denies any drug or alcohol issues. However his prior psychiatric assessment indicated that patient had a history of tramadol addiction and smoked more than 3 blunts of marijuana daily with occasional alcohol use. Patient admits to smoking about 10 cigarettes daily and was counseled about the morbidity and mortality risks of continued tobacco use. He defers on any nicotine replacement products because he is trying to completely quit. Current Medications: Active Medications Generic Name Dose Route Start Last Admin Trade Name Freq PRN Reason Stop Dose Admin Acetaminophen 650 mg 03/21/18 23:30 Tylenol 325mg Tab PO Q4 PRN Pain, moderate (4-7) Al Hydrox/Mg Hydrox/Simethicone 30 ml 03/21/18 23:30 Maalox Plus 30 Ml PO DAILY PRN Upset Stomach Clonazepam 0.5 mg 03/22/18 08:00 Klonopin PO BID LEANA Protocol Fluoxetine HCl 40 mg 03/22/18 08:00 Prozac PO DAILY LEANA Magnesium Hydroxide 30 ml 03/21/18 23:30 Milk Of Magnesia PO DAILY PRN Constipation Mirtazapine 45 mg 03/21/18 23:45 03/21/18 23:52 Remeron PO 45 mg HS LEANA Administration Pantoprazole Sodium 40 mg 03/22/18 06:00 Protonix Ec Tab PO 0600 LEANA Risperidone 0.5 mg 03/22/18 10:00 Risperdal Tab PO AMHS LEANA Protocol Past Psychiatric History - Past Psychiatric History Pertinent Medical Hx (Current Medical&Sleep Prob, Allergies): Allergies Allergy/AdvReac Type Severity Reaction Status Date / Time No Known Allergies Allergy Verified 03/21/18 23:26 Fluoxetine HCl [Prozac] 40 mg PO DAILY #14 capsule 02/07/18 Loratadine [Claritin] 10 mg PO DAILY #7 tab 02/07/18 Mirtazapine [Remeron] 45 mg PO HS #14 tab 02/07/18 Olopatadine 0.1% Opht [Patanol 0.1% Opht Soln] 1 uci OS DAILY #1 bottle Pantoprazole [Protonix EC Tab] 40 mg PO 0600 #7 ect 02/07/18 Polyethylene Glycol 3350 [Miralax] 17 gm PO DAILY #7 packet 02/07/18 Tetrahydrozoline 0.05% Opht [Visine 0.05% Opht Soln] 1 unit OU DAILY #1 bottle 02/07/18 clonazePAM [Klonopin] 0.5 mg PO BID #30 tab 02/07/18 risperiDONE [RisperDAL Tab] 0.5 mg PO AMHS #30 tab 02/07/18 Mental Status Examination - Personal Presentation Personal Presentation: Looks stated age - Affect Affect: Constricted - Motor Activity Motor Activity: Calm - Reliability in Providing Information Reliability in Providing Information: Fair - Speech Speech: Coherent - Mood Mood: Depressed, Anxious - Formal Thought Process Formal Thought Process: No Impairment - Obsessions/Compulsions Obsessions: No Compulsions: No - Cognitive Functions Orientation: Person, Place, Situation Sensorium: Alert Attention/Concentration: Easily distracted Estimate of Intelligence: Average Judgement: Imparied, as evidence by: Poor judgement, Imparied, as evidence by: Lack of insight into illness DSM 5 DX - DSM 5 DSM 5 Diagnosis: Major Depression, Severe RITESH Cocaine Abuse, r/o SIMD - Recommended/Plan of Treatment Treatment Recommendations and Plan of Treatment: * group, milieu and supportive tx * klonopin 0.5 mg po bid for anxiety and mood control * Prozac 40 mg po AM for depression and anxiety * Remeron 45 mg po HS for depression and off-label to help with sleep * Risperdal 0.5/0.5 to help with impulse control, considering replacing with abilify as abilify can also be beneficial for depression. * Sonata 5 mg HS prn: insomnia * Vitals reviewed and noted below: Selected Entries 03/21/18 03/22/18 23:15 06:46 Temperature 98.1 F 97.9 F Pulse Rate 101 H 89 Respiratory 18 20 Rate Blood Pressure 130/88 122/72 ER LABS 03/21/18 16:24: Alcohol, Quantitative < 10 03/21/18 16:24: Salicylates < 1 L, Acetaminophen < 10.0 L 03/21/18 16:24: Urine Opiates Screen Negative, Urine Methadone Screen Negative, Ur Barbiturates Screen Negative, Ur Phencyclidine Scrn Negative, Ur Amphetamines Screen Negative, U Benzodiazepines Scrn Negative, U Oth Cocaine Metabols Positive H, U Cannabinoids Screen Negative 03/21/18 16:24: Sodium 144, Potassium 3.9, Chloride 107, Carbon Dioxide 23, Anion Gap 18, BUN 11, Creatinine 0.9, Est GFR ( Amer) > 60, Est GFR (Non- Af Amer) > 60, Random Glucose 95, Calcium 9.3, Magnesium 1.9, Total Bilirubin 0.4, AST 74 H D, ALT 130 H, Alkaline Phosphatase 55, Total Protein 7.6, Albumin 4.3, Globulin 3.3, Albumin/Globulin Ratio 1.3 03/21/18 16:24: Urine Color Yellow, Urine Appearance Sl cloudy, Urine pH 7.5, Ur Specific [place] 1.020, Urine Protein Negative, Urine Glucose (UA) Negative, Urine Ketones Negative, Urine Blood Negative, Urine Nitrate Negative, Urine Bilirubin Negative, Urine Urobilinogen 0.2, Ur Leukocyte Esterase Negative 03/21/18 16:24: WBC 7.1, RBC 5.00, Hgb 15.3, Hct 44.4, MCV 88.8, MCH 30.6, MCHC 34.5, RDW 13.3, Plt Count 195, MPV 9.2, Gran % 44.5 L, Lymph % (Auto) 44.6 H, [place] % (Auto) 8.9 H, Eos % (Auto) 1.7, Baso % (Auto) 0.3, Gran # 3.16, Lymph # ( Auto) 3.2, [place] # (Auto) 0.6, Eos # (Auto) 0.1, Baso # (Auto) 0.02 FLOOR LABS 03/22/18 03/22/18 07:45 07:45 Triglycerides 108 Cholesterol 214 H LDL Cholesterol Direct 146 H HDL Cholesterol 47 TSH 3rd Generation 1.43 CLARIFICATION: Regarding 03/22/18 02:20 Nursing Note by Sonu Raphael "Dr Lyons contacted for orders, but stated pt was accepted by Dr Hagan. Dr Hagan called but did not answer, INSPECTOR WREATH geographic information systems analyst, Leilani called for orders" This provider was not on overnight call from 03/21/18 to 03/22/18. I was not at all aware of this patient's admission. However this provider did attempt to answer the aforementioned call (to see if I could be of any assistance in any way) but the other alliance party terminated the call before I could order picker. - Smoking Cessation Smoking Cessation Initiated: No Reason for not providing: Patient deferred
[2018-03-23] MEDS: Pantoprazole 40 mg EC Tab PO SCH (06:16)
--- NOTE | 2018-03-23 09:58 | PCM.PYCHPN ---
Psychiatric Progress Note - Psychiatric Progress Note Patient seen today, length of contact: 25 MIN Problems Identified/Issues Discussed: Patient is 22-year-old single Iranian male with history of major depressive disorder and generalized anxiety disorder, one prior psychiatric admission to [facility] (January 28 to February 07, 2018), Compliant with daily outpatient treatment program at [facility] untill the last week and reportedly compliant with psychiatric medications, self reported history of more than 10 suicidal attempts-most recently overdosed on Xanax and alcohol last month which led to the aforementioned admission who brought himself to the ER with complaints of depression and suicidal thoughts without plan. I reviewed patient's chart and met with patient at bedside as well as during treatment team meeting. His grooming is fair and patient is oriented to month, year, location and circumstance. He is calm during my questioning thought affect is preoccupied and constricted. Admits to depression, poor energy, anhedonia, some lability, "sleeping too much" and low frustration tolerance. [place] his psychiatric medications were initially beneficial but doesn't feel they are beneficial any longer. He denies any new stressors. Patient also denied drug use however UDS returned + for cocaine. Thought process is fairly coherent and responses are relevant. He isn't responding to internal stimuli. Delusions were not elicited and he doesn't appear overly paranoid or hypervigilant but he is guarded. Thus far he is tolerating his current medications and denies s/e, new discomfort or pain. Doesn't appear to be in any physical distress. There were no behavioral issues overnight. PSYCHIATRIC HISTORY One prior hospitalization at [facility] from January 28 to February 07, 2018. Patient was given a psychiatric diagnosis of major depressive disorder and RITESH. Patient was discharged on: Klonopin 0.5 mg PO BID Prozac 40 mg PO DAILY Remeron 45 mg PO HS Risperdal 0.5 mg PO AMHS Patient reportedly followed up with [facility] day treatment program however has not been compliant with the program for the past week due to depression. Patient took wellbutrin and buspar in the past with no benefit. Patient reported that he has more than 10 suicidal attempts in the past. Prior records indicate that patient tried to cut his wrist at the age of 9. patient did not tell anyone, patient said it was related to the fact that his father was incarcerated and mother had from the hepatitis C. Strong family history of depression and anxiety, last year patient's cousin committed suicide SOCIAL HISTORY Patient was born and raised in [place] [facility]. He single without any children. He has a GED and is currently unemployed. Patient denies any drug or alcohol issues. However his prior psychiatric assessment indicated that patient had a history of tramadol addiction and smoked more than 3 blunts of marijuana daily with occasional alcohol use. Patient admits to smoking about 10 cigarettes daily and was counseled about the morbidity and mortality risks of continued tobacco use. He defers on any nicotine replacement products because he is trying to completely quit. PROGRESS NOTE I reviewed patient's chart and met with patient at bedside. His grooming is fair and patient remains oriented to month, year, location and circumstance. He is calm during my questioning with preoccupied and constricted affect~~largely unchanged from yesterday. Thought process is fairly coherent and responses are relevant. He isn't responding to internal stimuli. Delusions were not elicited and he doesn't appear overly paranoid or hypervigilant. He is a little more communicative today and we are able to discuss possible beneficial medication changes. Patient reports preference to take buspar over klonopin for anxiety. Feels anxiety is bothering him more than depression. He is also in agreement with initiating abilify to help with mood in lieu of risperdal. Thus far patient is tolerating his current medications and denies s/e, new discomfort or pain. Doesn't appear to be in any physical distress. He has been visible on the unit and participated in group discussion though still appears depressed and withdrawn. There were no behavioral issues overnight. Diagnostic Results: Major Depression, Severe RITESH Cocaine Abuse, r/o SIMD Medication Change: Yes (d/c risperdal, decrease klonopin, start buspar and abilify) Medical Record Reviewed: Yes Mental Status Examination - Cognitive Function Orientation: Person, Place, Situation - Mood Mood: Depressed, Anxious - Affect Affect: Constricted - Formal Thought Process Formal Thought Process: No Impairment - Homicidal Ideation Homicidal Ideation: No Goal/Treatment Plan - Goal/Treatment Plan Progress Toward Problem(s) and Goals/Treatment Plan: * group, milieu and supportive tx * d/c klonopin and start buspar 5 mg po tid for anxiety * Prozac 40 mg po AM for depression and anxiety * Remeron 45 mg po HS for depression and off-label to help with sleep * d/c Risperdal 0.5/0.5 and initiate Abilify 5 mg HS tomorrow to help with impulse control, lability and depression. * Sonata 5 mg HS prn: insomnia * Vitals reviewed and noted below: Selected Entries 03/23/18 06:58 Temperature 98.1 F Pulse Rate 84 Respiratory 20 Rate Blood Pressure 115/69 ER LABS 03/21/18 16:24: Alcohol, Quantitative < 10 03/21/18 16:24: Salicylates < 1 L, Acetaminophen < 10.0 L 03/21/18 16:24: Urine Opiates Screen Negative, Urine Methadone Screen Negative, Ur Barbiturates Screen Negative, Ur Phencyclidine Scrn Negative, Ur Amphetamines Screen Negative, U Benzodiazepines Scrn Negative, U Oth Cocaine Metabols Positive H, U Cannabinoids Screen Negative 03/21/18 16:24: Sodium 144, Potassium 3.9, Chloride 107, Carbon Dioxide 23, Anion Gap 18, BUN 11, Creatinine 0.9, Est GFR ( Amer) > 60, Est GFR (Non- Af Amer) > 60, Random Glucose 95, Calcium 9.3, Magnesium 1.9, Total Bilirubin 0.4, AST 74 H D, ALT 130 H, Alkaline Phosphatase 55, Total Protein 7.6, Albumin 4.3, Globulin 3.3, Albumin/Globulin Ratio 1.3 03/21/18 16:24: Urine Color Yellow, Urine Appearance Sl cloudy, Urine pH 7.5, Ur Specific [place] 1.020, Urine Protein Negative, Urine Glucose (UA) Negative, Urine Ketones Negative, Urine Blood Negative, Urine Nitrate Negative, Urine Bilirubin Negative, Urine Urobilinogen 0.2, Ur Leukocyte Esterase Negative 03/21/18 16:24: WBC 7.1, RBC 5.00, Hgb 15.3, Hct 44.4, MCV 88.8, MCH 30.6, MCHC 34.5, RDW 13.3, Plt Count 195, MPV 9.2, Gran % 44.5 L, Lymph % (Auto) 44.6 H, [place] % (Auto) 8.9 H, Eos % (Auto) 1.7, Baso % (Auto) 0.3, Gran # 3.16, Lymph # ( Auto) 3.2, [place] # (Auto) 0.6, Eos # (Auto) 0.1, Baso # (Auto) 0.02 FLOOR LABS 03/22/18 03/22/18 07:45 07:45 Triglycerides 108 Cholesterol 214 H LDL Cholesterol Direct 146 H HDL Cholesterol 47 TSH 3rd Generation 1.43
[2018-03-24] MEDS: Pantoprazole 40 mg EC Tab PO SCH (09:45)
--- NOTE | 2018-03-24 10:27 | PCM.PYCHPN ---
Psychiatric Progress Note - Psychiatric Progress Note Patient seen today, length of contact: 25 MIN Problems Identified/Issues Discussed: Patient is 22-year-old single [place]yanese male with history of major depressive disorder and generalized anxiety disorder, one prior psychiatric admission to [facility] (January 28 to February 07, 2018), Compliant with daily outpatient treatment program at [facility] untill the last week and reportedly compliant with psychiatric medications, self reported history of more than 10 suicidal attempts-most recently overdosed on Xanax and alcohol last month which led to the aforementioned admission who brought himself to the ER with complaints of depression and suicidal thoughts without plan. I reviewed patient's chart and met with patient at bedside as well as during treatment team meeting. His grooming is fair and patient is oriented to month, year, location and circumstance. He is calm during my questioning thought affect is preoccupied and constricted. Admits to depression, poor energy, anhedonia, some lability, "sleeping too much" and low frustration tolerance. [place] his psychiatric medications were initially beneficial but doesn't feel they are beneficial any longer. He denies any new stressors. Patient also denied drug use however UDS returned + for cocaine. Thought process is fairly coherent and responses are relevant. He isn't responding to internal stimuli. Delusions were not elicited and he doesn't appear overly paranoid or hypervigilant but he is guarded. Thus far he is tolerating his current medications and denies s/e, new discomfort or pain. Doesn't appear to be in any physical distress. There were no behavioral issues overnight. PSYCHIATRIC HISTORY One prior hospitalization at [facility] from January 28 to February 07, 2018. Patient was given a psychiatric diagnosis of major depressive disorder and RITESH. Patient was discharged on: Klonopin 0.5 mg PO BID Prozac 40 mg PO DAILY Remeron 45 mg PO HS Risperdal 0.5 mg PO AMHS Patient reportedly followed up with [facility] day treatment program however has not been compliant with the program for the past week due to depression. Patient took wellbutrin and buspar in the past with no benefit. Patient reported that he has more than 10 suicidal attempts in the past. Prior records indicate that patient tried to cut his wrist at the age of 9. patient did not tell anyone, patient said it was related to the fact that his father was incarcerated and mother had from the hepatitis C. Strong family history of depression and anxiety, last year patient's cousin committed suicide SOCIAL HISTORY Patient was born and raised [place]. He single without any children. He has a GED and is currently unemployed. Patient denies any drug or alcohol issues. However his prior psychiatric assessment indicated that patient had a history of tramadol addiction and smoked more than 3 blunts of marijuana daily with occasional alcohol use. Patient admits to smoking about 10 cigarettes daily and was counseled about the morbidity and mortality risks of continued tobacco use. He defers on any nicotine replacement products because he is trying to completely quit. PROGRESS NOTE I reviewed patient's chart and met with patient at bedside. His grooming is fair and patient remains oriented to month, year, location and circumstance. He is calm during my questioning with preoccupied and constricted affect~~largely unchanged from yesterday. Thought process is fairly coherent and responses are relevant. He isn't responding to internal stimuli. Delusions were not elicited and he doesn't appear overly paranoid or hypervigilant. He remains a little more communicative today and we are able to discuss possible beneficial medication changes. Patient reports preference to take buspar over klonopin for anxiety because it had been beneficial for him in the past. Yesterday patient reported that anxiety was more distressing than depression and he continues to feel this way. He remains in agreement with initiating abilify to help with mood in lieu of risperdal. Thus far patient is tolerating his current medications and denies s/e, new discomfort or pain. Doesn't appear to be in any physical distress. He has been visible on the unit and participated in group discussion though still appears depressed and withdrawn. There were no behavioral issues overnight. Patient placed a 48 hour letter on 03/23/18 and was seen by a [facility] screener early AM 03/24/18. The screener determined that patient did not meet criteria for involuntary commitment and patient will be discharged AMA tomorrow 03/25/18. Diagnostic Results: Major Depression, Severe RITESH Cocaine Abuse, r/o SIMD Medication Change: Yes (d/c klonopin, start buspar and abilify) Medical Record Reviewed: Yes Mental Status Examination - Cognitive Function Orientation: Person, Place, Situation - Mood Mood: Depressed, Anxious - Affect Affect: Constricted - Formal Thought Process Formal Thought Process: No Impairment - Homicidal Ideation Homicidal Ideation: No Goal/Treatment Plan - Goal/Treatment Plan Progress Toward Problem(s) and Goals/Treatment Plan: * group, milieu and supportive tx * d/c klonopin and start buspar 5 mg po tid for anxiety * Prozac 40 mg po AM for depression and anxiety * Remeron 45 mg po HS for depression and off-label to help with sleep * d/c Risperdal 0.5/0.5 and initiate Abilify 5 mg HS to help with impulse control, lability and depression. * Sonata 5 mg HS prn: insomnia * Vitals reviewed and noted below: Selected Entries 03/24/18 07:01 Temperature 97.6 F Pulse Rate 84 Respiratory 20 Rate Blood Pressure 117/67 ER LABS 03/21/18 16:24: Alcohol, Quantitative < 10 03/21/18 16:24: Salicylates < 1 L, Acetaminophen < 10.0 L 03/21/18 16:24: Urine Opiates Screen Negative, Urine Methadone Screen Negative, Ur Barbiturates Screen Negative, Ur Phencyclidine Scrn Negative, Ur Amphetamines Screen Negative, U Benzodiazepines Scrn Negative, U Oth Cocaine Metabols Positive H, U Cannabinoids Screen Negative 03/21/18 16:24: Sodium 144, Potassium 3.9, Chloride 107, Carbon Dioxide 23, Anion Gap 18, BUN 11, Creatinine 0.9, Est GFR ( Amer) > 60, Est GFR (Non- Af Amer) > 60, Random Glucose 95, Calcium 9.3, Magnesium 1.9, Total Bilirubin 0.4, AST 74 H D, ALT 130 H, Alkaline Phosphatase 55, Total Protein 7.6, Albumin 4.3, Globulin 3.3, Albumin/Globulin Ratio 1.3 03/21/18 16:24: Urine Color Yellow, Urine Appearance Sl cloudy, Urine pH 7.5, Ur Specific [place] 1.020, Urine Protein Negative, Urine Glucose (UA) Negative, Urine Ketones Negative, Urine Blood Negative, Urine Nitrate Negative, Urine Bilirubin Negative, Urine Urobilinogen 0.2, Ur Leukocyte Esterase Negative 03/21/18 16:24: WBC 7.1, RBC 5.00, Hgb 15.3, Hct 44.4, MCV 88.8, MCH 30.6, MCHC 34.5, RDW 13.3, Plt Count 195, MPV 9.2, Gran % 44.5 L, Lymph % (Auto) 44.6 H, [place] % (Auto) 8.9 H, Eos % (Auto) 1.7, Baso % (Auto) 0.3, Gran # 3.16, Lymph # ( Auto) 3.2, [place] # (Auto) 0.6, Eos # (Auto) 0.1, Baso # (Auto) 0.02 FLOOR LABS 03/22/18 03/22/18 07:45 07:45 Triglycerides 108 Cholesterol 214 H LDL Cholesterol Direct 146 H HDL Cholesterol 47 TSH 3rd Generation 1.43 * Patient placed a 48 hour letter on 03/23/18 and was seen by a [facility] screener early AM 03/24/18. The screener determined that patient did not meet criteria for involuntary commitment and patient will be discharged AMA tomorrow 03/25/18.
[2018-03-25 06:34] VITALS: BP 104/72; PULSE 70; TEMP 98.2
[2018-03-25] MEDS: Pantoprazole 40 mg EC Tab PO SCH (07:11)
--- NOTE | 2018-03-25 09:35 | PCM.PYCHDC ---
Mental Status Examination - Mental Status Examination Orientation: Person, Place, Situation Memory: Intact Mood: Depressed, Anxious Affect: Constricted Speech: Appropriate Attention: WNL Concentration: WNL Association: WNL Fund of Knowledge: WNL Formal Thought Process: No Impairment Description of patient's judgement and insight: Improved and poor-fair insight and judgment Psychotic Thoughts and Behaviors: Patient denied any perceptual disturbance at discharge, specifically denied AVH or paranoid thoughts. Delusions were not elicited. Suicidal Ideation: No Current Homicidal Ideation?: No Discharge Summary - Discharge Note Reason for Hospitalization: Patient is 22-year-old single Malag[place] male with history of major depressive disorder and generalized anxiety disorder, one prior psychiatric admission to [facility] (January 28 to February 07, 2018), Compliant with daily outpatient treatment program at [facility] untill the last week and reportedly compliant with psychiatric medications, self reported history of more than 10 suicidal attempts-most recently overdosed on Xanax and alcohol last month which led to the aforementioned admission who brought himself to the ER with complaints of depression and suicidal thoughts without plan. PSYCHIATRIC HISTORY One prior hospitalization at [facility] from January 28 to February 07, 2018. Patient was given a psychiatric diagnosis of major depressive disorder and RITESH. Patient was discharged on: Klonopin 0.5 mg PO BID Prozac 40 mg PO DAILY Remeron 45 mg PO HS Risperdal 0.5 mg PO AMHS Patient reportedly followed up with [facility] day treatment program however has not been compliant with the program for the past week due to depression. Patient took wellbutrin and buspar in the past with no benefit. Patient reported that he has more than 10 suicidal attempts in the past. Prior records indicate that patient tried to cut his wrist at the age of 9. patient did not tell anyone, patient said it was related to the fact that his father was incarcerated and mother had from the hepatitis C. Strong family history of depression and anxiety, last year patient's cousin committed suicide SOCIAL HISTORY Patient was born and raised in [place]. He single without any children. He has a GED and is currently unemployed. Patient denies any drug or alcohol issues. However his prior psychiatric assessment indicated that patient had a history of tramadol addiction and smoked more than 3 blunts of marijuana daily with occasional alcohol use. Patient admits to smoking about 10 cigarettes daily and was counseled about the morbidity and mortality risks of continued tobacco use. He defers on any nicotine replacement products because he is trying to completely quit. Laboratory Data: Laboratory Tests 03/21/18 03/21/18 03/21/18 16:24 16:24 16:24 WBC 7.1 RBC 5.00 Hgb 15.3 Hct 44.4 MCV 88.8 MCH 30.6 MCHC 34.5 RDW 13.3 Plt Count 195 MPV 9.2 Gran % 44.5 L Lymph % (Auto) 44.6 H Stanley % (Auto) 8.9 H Eos % (Auto) 1.7 Baso % (Auto) 0.3 Gran # 3.16 Lymph # (Auto) 3.2 Stanley # (Auto) 0.6 Eos # (Auto) 0.1 Baso # (Auto) 0.02 Sodium 144 Potassium 3.9 Chloride 107 Carbon Dioxide 23 Anion Gap 18 BUN 11 Creatinine 0.9 Est GFR ( Amer) > 60 Est GFR (Non-Af Amer) > 60 Random Glucose 95 Fasting Glucose Calcium 9.3 Magnesium 1.9 Total Bilirubin 0.4 AST 74 H D ALT 130 H Alkaline Phosphatase 55 Total Protein 7.6 Albumin 4.3 Globulin 3.3 Albumin/Globulin Ratio 1.3 Triglycerides Cholesterol LDL Cholesterol Direct HDL Cholesterol TSH 3rd Generation Urine Color Yellow Urine Appearance Sl cloudy Urine pH 7.5 Ur Specific [place] 1.020 Urine Protein Negative Urine Glucose (UA) Negative Urine Ketones Negative Urine Blood Negative Urine Nitrate Negative Urine Bilirubin Negative Urine Urobilinogen 0.2 Ur Leukocyte Esterase Negative Salicylates Urine Opiates Screen Urine Methadone Screen Acetaminophen Ur Barbiturates Screen Ur Phencyclidine Scrn Ur Amphetamines Screen U Benzodiazepines Scrn U Oth Cocaine Metabols U Cannabinoids Screen Alcohol, Quantitative RPR 03/21/18 03/21/18 03/21/18 16:24 16:24 16:24 WBC RBC Hgb Hct MCV MCH MCHC RDW Plt Count MPV Gran % Lymph % (Auto) Stanley % (Auto) Eos % (Auto) Baso % (Auto) Gran # Lymph # (Auto) Stanley # (Auto) Eos # (Auto) Baso # (Auto) Sodium Potassium Chloride Carbon Dioxide Anion Gap BUN Creatinine Est GFR ( Amer) Est GFR (Non-Af Amer) Random Glucose Fasting Glucose Calcium Magnesium Total Bilirubin AST ALT Alkaline Phosphatase Total Protein Albumin Globulin Albumin/Globulin Ratio Triglycerides Cholesterol LDL Cholesterol Direct HDL Cholesterol TSH 3rd Generation Urine Color Urine Appearance Urine pH Ur Specific [place] Urine Protein Urine Glucose (UA) Urine Ketones Urine Blood Urine Nitrate Urine Bilirubin Urine Urobilinogen Ur Leukocyte Esterase Salicylates < 1 L Urine Opiates Screen Negative Urine Methadone Screen Negative Acetaminophen < 10.0 L Ur Barbiturates Screen Negative Ur Phencyclidine Scrn Negative Ur Amphetamines Screen Negative U Benzodiazepines Scrn Negative U Oth Cocaine Metabols Positive H U Cannabinoids Screen Negative Alcohol, Quantitative < 10 RPR 03/22/18 03/22/18 03/22/18 07:45 07:45 07:45 WBC RBC Hgb Hct MCV MCH MCHC RDW Plt Count MPV Gran % Lymph % (Auto) Stanley % (Auto) Eos % (Auto) Baso % (Auto) Gran # Lymph # (Auto) Stanley # (Auto) Eos # (Auto) Baso # (Auto) Sodium Potassium Chloride Carbon Dioxide Anion Gap BUN Creatinine Est GFR ( Amer) Est GFR (Non-Af Amer) Random Glucose Fasting Glucose 94 Calcium Magnesium Total Bilirubin AST ALT Alkaline Phosphatase Total Protein Albumin Globulin Albumin/Globulin Ratio Triglycerides 108 Cholesterol 214 H LDL Cholesterol Direct 146 H HDL Cholesterol 47 TSH 3rd Generation 1.43 Urine Color Urine Appearance Urine pH Ur Specific [place] Urine Protein Urine Glucose (UA) Urine Ketones Urine Blood Urine Nitrate Urine Bilirubin Urine Urobilinogen Ur Leukocyte Esterase Salicylates Urine Opiates Screen Urine Methadone Screen Acetaminophen Ur Barbiturates Screen Ur Phencyclidine Scrn Ur Amphetamines Screen U Benzodiazepines Scrn U Oth Cocaine Metabols U Cannabinoids Screen Alcohol, Quantitative RPR Nonreactive Consultations:: List each consultation separately and include: 1. Reason for request. 2. Findings. 3. Follow-up Consultations: None requested, patient was medically stable Summary of Hospital Course include:: 1. Description of specific treatment plan utilized for patients during their course of treatmen. 2. Summarize the time- course for resolution of acute symptoms and/or regressed behaviors. 3. Describe issues identified and worked on during hospitalization. 4. Describe medication utilized. 5. Describe medical problems identified and treated. 6. Reassessment of suicide risk Summary of Hospital Course: Patient is 22-year-old single [place]ag[place] male with history of major depressive disorder and generalized anxiety disorder, one prior psychiatric admission to [facility] (January 28 to February 07, 2018), Compliant with daily outpatient treatment program at [facility] untill the last week and reportedly compliant with psychiatric medications, self reported history of more than 10 suicidal attempts-most recently overdosed on Xanax and alcohol last month which led to the aforementioned admission who brought himself to the ER with complaints of depression and suicidal thoughts without plan. Patient was oriented to month, year, location and circumstances, and demonstrated fair grooming through course. Remained calm without any outbursts. Affect was preoccupied and constricted but showed some signs of reactivity and brightness during our interviews as time progress. Initially admitted to depression, poor energy, anhedonia, some lability, "sleeping too much" and low frustration tolerance. He denies any new stressors. Patient also denied drug use however UDS returned + for cocaine. Patient felt his psychiatric medications were initially beneficial s/p his prior discharge but doesn't feel they are beneficial any longer. Guarded but more communicative by his 2nd/3rd day on the unit and we are able to discuss possible beneficial medication changes. Patient reports preference to take buspar over klonopin for anxiety. Admitted that his anxiety is bothering him more than depression. He was also in agreement with initiating abilify to help with mood in lieu of risperdal. Thought process is fairly coherent and responses are relevant. Delusions were not elicited and he doesn't appear overly paranoid or hypervigilant. Wasn't observed to be responding to internal stimuli. He denied SI/HI throughout admission. He has been visible on the unit and participated in group discussion though still appeared depressed by discharge. Patient placed a 48 hour letter on 03/23/18 and was seen by a [facility] screener early AM 03/24/18. The screener determined that patient did not meet criteria for involuntary commitment and patient was discharged AMA 03/25/18. Patient reported that he will f/u with [facility] day treatment program on 03/26/18. This provider called Serge Akbar at [phone] at 9:10 am on 03/25/18 and authorized a 14 day supply + 1 RF of the following medications: Abilify 5 mg HS, Prozac 40 mg po AM, Buspar 5 mg po TID and Remeron 45 mg po HS. - Diagnosis (1) Cocaine abuse Current Visit: Yes Status: Acute (2) MDD (major depressive disorder) Current Visit: Yes Status: Chronic Priority: High (3) RITESH (generalized anxiety disorder) Current Visit: No Status: Acute Priority: High - Final Diagnosis (DSM 5) Condition upon Discharge: IMPROVED DSM 5: Major Depression, Severe RITESH Cocaine Abuse, r/o SIMD Disposition: AGAINST MEDICAL ADVICE Follow-up Treatment Plan: * group, milieu and supportive tx * d/c klonopin and start buspar 5 mg po tid for anxiety * Prozac 40 mg po AM for depression and anxiety * Remeron 45 mg po HS for depression and off-label to help with sleep * d/c Risperdal 0.5/0.5 and initiate Abilify 5 mg HS tomorrow to help with impulse control, lability and depression. * Sonata 5 mg HS prn: insomnia * Vitals reviewed and noted below: Selected Entries 03/23/18 06:58 Temperature 98.1 F Pulse Rate 84 Respiratory 20 Rate Blood Pressure 115/69 ER LABS 03/21/18 16:24: Alcohol, Quantitative < 10 03/21/18 16:24: Salicylates < 1 L, Acetaminophen < 10.0 L 03/21/18 16:24: Urine Opiates Screen Negative, Urine Methadone Screen Negative, Ur Barbiturates Screen Negative, Ur Phencyclidine Scrn Negative, Ur Amphetamines Screen Negative, U Benzodiazepines Scrn Negative, U Oth Cocaine Metabols Positive H, U Cannabinoids Screen Negative 03/21/18 16:24: Sodium 144, Potassium 3.9, Chloride 107, Carbon Dioxide 23, Anion Gap 18, BUN 11, Creatinine 0.9, Est GFR ( Amer) > 60, Est GFR (Non- Af Amer) > 60, Random Glucose 95, Calcium 9.3, Magnesium 1.9, Total Bilirubin 0.4, AST 74 H D, ALT 130 H, Alkaline Phosphatase 55, Total Protein 7.6, Albumin 4.3, Globulin 3.3, Albumin/Globulin Ratio 1.3 03/21/18 16:24: Urine Color Yellow, Urine Appearance Sl cloudy, Urine pH 7.5, Ur Specific [place] 1.020, Urine Protein Negative, Urine Glucose (UA) Negative, Urine Ketones Negative, Urine Blood Negative, Urine Nitrate Negative, Urine Bilirubin Negative, Urine Urobilinogen 0.2, Ur Leukocyte Esterase Negative 03/21/18 16:24: WBC 7.1, RBC 5.00, Hgb 15.3, Hct 44.4, MCV 88.8, MCH 30.6, MCHC 34.5, RDW 13.3, Plt Count 195, MPV 9.2, Gran % 44.5 L, Lymph % (Auto) 44.6 H, Stanley % (Auto) 8.9 H, Eos % (Auto) 1.7, Baso % (Auto) 0.3, Gran # 3.16, Lymph # ( Auto) 3.2, Stanley # (Auto) 0.6, Eos # (Auto) 0.1, Baso # (Auto) 0.02 FLOOR LABS 03/22/18 03/22/18 07:45 07:45 Triglycerides 108 Cholesterol 214 H LDL Cholesterol Direct 146 H HDL Cholesterol 47 TSH 3rd Generation 1.43 Prescriptions/Medication Reconciliation: Fluoxetine HCl [Prozac] 40 mg PO DAILY #14 capsule risperiDONE [RisperDAL Tab] 0.5 mg PO AMHS #30 tab - Smoking Cessation Smoking Cessation Medication prescribed: No Reason for not providing: Patient deferred - Antipsychotic Medications Pt discharged on 2 or more routine antipsychotic medications: No
== END 2018-03-25 10:08 | disposition left against medical advice (07) | DRG 426 ==
LOC: ED 15:55 → ERH 18:22 → PSYC 22:59
PROVIDERS: ADMIT Psychiatry & Neurology Psychiatry; ATTEND Psychiatry & Neurology Psychiatry
PROC: GZ3ZZZZ Medication Management (ICD-10-PCS; principal; 2018-03-22)
DX: F32.9 Major depressive disorder, single episode, unspecified (principal); F14.10 Cocaine abuse, uncomplicated; R45.851 Suicidal ideations; F41.1 Generalized anxiety disorder; F17.210 Nicotine dependence, cigarettes, uncomplicated; Z91.19 Patient's noncompliance with other medical treatment and regimen; Z81.8 Family history of other mental and behavioral disorders